=== PATIENT | female | born 1955 | race African-American/Black ===

== ENCOUNTER 2016-11-17 15:01 | Inpatient (IN) | payer OTHER ==
[~2016-11-17] VITALS: Ht 160 cm; Wt 43.5 kg
[~2016-11-17 15:01] MED LIST: FOLI-49 PO; RANI150T5 PO; SMV40T PO; SULF500T45 PO
[2016-11-17] MEDS ORDERED: HYDROmorphONE 1 MG/ML SYG IV STA ×3 (15:13→21:23)
[2016-11-17] MEDS ORDERED: SOD CHLORIDE 0.9% 1,000 ML IV STA ×2 (15:13→15:18)
[2016-11-17] MEDS ORDERED: ONDANSETRON 4 MG INJ IV STA (15:13)
--- NOTE | 2016-11-17 15:50 | RADRPT ---
PROCEDURE: CHEST 1VW CLINICAL INDICATION: Abdominal pain TECHNIQUE: Single frontal view of the chest was obtained COMPARISON: None. FINDINGS: The cardiac size is normal. Aortic vascular calcifications are demonstrated. There is no pulmonary vascular congestion. The lungs are clear. No consolidation, effusion, or pneumothorax. Mild degenerative changes of the visualized osseous structures are visualized. IMPRESSION: 1. No acute cardiopulmonary process. 2. Atherosclerosis. RPTAT:PP .Tito Zeng MD, MD Date Time Electronically viewed and signed by .Tito Zeng MD, on 11/17/2016 15:49 .V/
[2016-11-17 15:58] LABS: ADD SCAN DIFF NO
[2016-11-17 16:01] LABS: BASOPHILS % 0.3 % (0.0-2.0); EOSINOPHILS % 0.3 % (0.0-7.0); HEMATOCRIT 39.9 % (37.0-47.0); HEMOGLOBIN 12.5 g/dl (12.0-16.0); LYMPHOCYTES # 1.7 10^3/ul (0.8-2.9); LYMPHOCYTES % 11.6 % (15.0-51.0); MEAN CORPUSCULAR HEMOGLOBIN 29.8 pg (29.0-33.0); MEAN CORPUSCULAR HGB CONC 31.3 g/dl (32.0-37.0); MEAN CORPUSCULAR VOLUME 95.2 fl (82.0-101.0); MONOCYTE # 0.4 10^3/ul (0.3-0.9); MONOCYTES % 2.9 % (0.0-11.0); NEUTROPHIL # 12.6 10^3/ul (1.6-7.5); NEUTROPHILS % 84.2 % (39.0-77.0); PLATELET COUNT 548 10^3/UL (140-415); RED BLOOD COUNT 4.19 10^6/ul (4.20-5.40); RED CELL DISTRIBUTION WIDTH 12.6 % (11.5-14.5); WHITE BLOOD COUNT 14.9 10^3/ul (4.8-10.8)
[2016-11-17 16:24] LABS: INR 0.88; PARTIAL THROMBOPLASTIN TIME 21.7 Sec (25.0-35.0); PROTIME 11.9 Sec (12.2-14.2); PT RATIO 0.9
[2016-11-17 16:27] LABS: ALANINE AMINOTRANSFERASE 30 IU/L (13-69); ALBUMIN 4.3 g/dl (3.3-4.9); ALBUMIN/GLOBULIN RATIO 1.02; ALKALINE PHOSPHATASE 126 IU/L (42-121); ANION GAP 17 (8-16); ASPARTATE AMINO TRANSFERASE 27 IU/L (15-46); BILIRUBIN,INDIRECT 0.3 mg/dl (0-1.1); BILIRUBIN,TOTAL 0.3 mg/dl (0.2-1.3); BLOOD UREA NITROGEN 19 mg/dl (7-20); CALCIUM 10.3 mg/dl (8.4-10.2); CARBON DIOXIDE 24 mmol/L (21-31); CHLORIDE 99 mmol/L (97-110); CREATININE 1.19 mg/dl (0.44-1.00); GLUCOSE 244 mg/dl (70-220); POTASSIUM 3.3 mmol/L (3.5-5.1); SODIUM 137 mmol/L (135-144); TOTAL PROTEIN 8.5 g/dl (6.1-8.1)
[2016-11-17 16:53] LABS: TROPONIN-I < 0.012 ng/ml (0.00-0.12)
--- NOTE | 2016-11-17 17:14 | RADRPT ---
PROCEDURE: CT Abdomen and Pelvis without contrast. CLINICAL INDICATION: History of small bowel obstruction. TECHNIQUE: CT scan of the abdomen and pelvis without contrast was performed. Coronal and sagittal reformatted images were obtained from the axial source images. Images were reviewed on a high-res[employer] PACS workstation. Total exam DLP is 373.39 mGy-cm. CTDIvol is 7.86 mGy. One or more of the fo [facility] dose reduction techniques were used: Automated exposure control, adjustment of the mA and/or kV according to patient size, use of iterative reconstruction technique. COMPARISON: 06/27/2016. FINDINGS: The lung bases are normal. There is no pleural effusion. The liver is normal in size and attenuation. There is no focal hepatic lesion. The gallbladder and bile ducts are normal. The spleen is normal in size. There is no focal splenic lesion. The right adrenal is normal. There is a low attenuation 1.5 x 1.4 cm nodule in the left adrenal wit h a CT number of 1.0. The pancreas is unremarkable with no mass or evidence of pancreatitis. There is no renal mass or hydronephrosis. There is a nonobstructing 0.1 cm calculus in the mid righ t kidney. There is no left renal calculus or ureteral calculus. The abdominal aorta is not dilated. There is calcification in the aorta consistent with atheroscler osis. There is no retroperitoneal lymphadenopathy or mass. There is no pelvic lymphadenopathy. Small calcified fibroids are present in the uterus. The bladder and distal ureters are normal. The periappendiceal region is unremarkable with no evidence of appendicitis. The stomach, small bowel, and ascending colon are all distended with fluid consistent with obstructi on. There is a stent within the colon at the site of the previously noted mass in the hepatic flexu re/right side of the transverse colon. The obstruction once again appears to be centered at this lo cation. As seen previously, there is extensive nodularity within the mesentery in the left upper josselyn drant consistent with neoplasm. There is no free fluid or free gas. The osseous structures are unremarkable with no fracture or lytic lesion. IMPRESSION: 1. Low attenuation 1.5 cm nodule in the left adrenal, probably benign. 2. Nonobstructing 0.1 cm calculus in the mid right kidney. 3. Atherosclerosis. 4. Small calcified fibroids in the uterus. 5. Obstruction due to a mass in the hepatic flexure region of the colon. A stent is present at thi s site but it is probably obstructed. 6. Extensive nodularity in the mesentery in the left upper quadrant consistent with neoplasm. RPTAT: QQ .Felipe Hendricks MD, Date Time Electronically viewed and signed by .Felipe Hendricks MD, on 11/17/2016 17:13 .R/
[2016-11-17] MEDS ORDERED: ONDANSETRON 4 MG INJ IV PRN (18:00)
[2016-11-17] MEDS ORDERED: ACETAMINOPHEN 325 MG TAB PO PRN (18:00)
--- NOTE | 2016-11-17 18:50 | ERA ---
ER Documentation Chief Complaint Date/Time DATE: 11/17/16 TIME: 18:48 Chief Complaint SEVERE AP WITH NAUSEA, HAD BOWEOL OBSTRUCTION LAST Jun Patient is a 61-year-old female with bowel obstruction and ulcerative colitis who presents with abdominal pain. She has had abdominal pain since June. She was vomiting blood which started this morning at 10 AM. She has diarrhea. She had subjective fever but did not take her temperature. She tried to Tylenol. Upon review of old medical records the patient one previous visit in June 2016 with a large bowel obstruction. She was seen by Dr. Peter Padron from general surgery and Dr. Perez from GI at that time. ROS All systems reviewed and are negative except as per history of present illness. Medications Home Meds Reported Medications Folic Acid* (Folic Acid*) 1 Mg Tablet, 1 MG PO DAILY, TAB 10/04/14 Ranitidine Hcl* (Ranitidine Hcl*) 150 Mg Tablet, 150 MG PO PRN, TAB 10/04/14 Simvastatin (Simvastatin) 40 Mg Tablet, 40 MG PO QHS 11/09/12 Sulfasalazine (Azulfidine) 500 Mg Tab, 1000 MG PO BID 11/09/12 Allergies Allergies: Coded Allergies: No Known Allergy (Unverified , 11/17/16) PMhx/Soc History of Surgery: Yes (COLONOSCOPY NOVEMBER 2015) Anesthesia Reaction: No Hx Neurological Disorder: No Hx Respiratory Disorders: No Hx Cardiac Disorders: Yes (HIGH CHOLESTEROL) Hx Psychiatric Problems: Yes (DEPRESSION) Hx Miscellaneous Medical Probl: No Hx Alcohol Use: Yes (OCCASIONALLY) Hx Substance Use: No Hx Tobacco Use: Yes (YESTERDAY, 1 PACK EVERY 4 DAYS) Smoking Status: Current every day smoker FmHx Family History: diabetes Physical Exam Vitals Vital Signs Date Time Temp Pulse Resp B/P Pulse Ox O2 Delivery O2 Flow Rate FiO2 11/17/16 17:46 88 18 106/74 99 11/17/16 17:26 88 18 106/60 99 11/17/16 15:30 81 18 92/62 99 11/17/16 15:02 98.1 130 18 125/67 99 Physical Exam Const: Moderate distress secondary to pain Head: Atraumatic Eyes: Normal Conjunctiva ENT: Dry mucous membranes Neck: Full range of motion..~ No meningismus. Resp: Clear to auscultation bilaterally Cardio: Tachycardic rate without murmur Abd: Diffuse tenderness to palpation without rebound or guarding Skin: No petechiae or rashes Back: No midline or flank tenderness Ext: No cyanosis, or edema Neur: Awake and alert Psych: Normal Mood and Affect Result Diagram: 11/17/16 1545 11/17/16 1545 Results 24 hrs Laboratory Tests Test 11/17/16 15:45 White Blood Count 14.910^3/ul Red Blood Count 4.1910^6/ul Hemoglobin 12.5g/dl Hematocrit 39.9% Mean Corpuscular Volume 95.2fl Mean Corpuscular Hemoglobin 29.8pg Mean Corpuscular Hemoglobin Concent 31.3g/dl Red Cell Distribution Width 12.6% Platelet Count 35565^3/UL Mean Platelet Volume 9.0fl Neutrophils % 84.2% Lymphocytes % 11.6% Monocytes % 2.9% Eosinophils % 0.3% Basophils % 0.3% Nucleated Red Blood Cells % 0.0/100WBC Neutrophils # 12.610^3/ul Lymphocytes # 1.710^3/ul Monocytes # 0.410^3/ul Eosinophils # 0.010^3/ul Basophils # 0.010^3/ul Nucleated Red Blood Cells # 0.010^3/ul Prothrombin Time 11.9Sec Prothrombin Time Ratio 0.9 INR International Normalized Ratio 0.88 Activated Partial Thromboplast Time 21.7Sec Sodium Level 137mmol/L Potassium Level 3.3mmol/L Chloride Level 99mmol/L Carbon Dioxide Level 24mmol/L Anion Gap 17 Blood Urea Nitrogen 19mg/dl Creatinine 1.19mg/dl Glucose Level 244mg/dl Calcium Level 10.3mg/dl Total Bilirubin 0.3mg/dl Direct Bilirubin 0.00mg/dl Indirect Bilirubin 0.3mg/dl Aspartate Amino Transf (AST/SGOT) 27IU/L Alanine Aminotransferase (ALT/SGPT) 30IU/L Alkaline Phosphatase 126IU/L Troponin I < 0.012ng/ml Total Protein 8.5g/dl Albumin 4.3g/dl Globulin 4.20g/dl Albumin/Globulin Ratio 1.02 Lipase 66U/L Current Medications Medications (Trade) Dose Ordered Sig/Nena Route PRN Reason Start Time Stop Time Status Last Admin Dose Admin Sodium Chloride (NS) 1,000 ml @ 1,000 mls/hr Q1H STAT IV 11/17/16 15:13 11/17/16 16:12 DC 11/17/16 15:48 Hydromorphone HCl (Dilaudid) 1 mg ONCE STAT IV 11/17/16 15:13 11/17/16 15:14 DC 11/17/16 15:49 Ondansetron HCl 4 mg 4 mg ONCE STAT IV 11/17/16 15:13 11/17/16 15:14 DC 11/17/16 15:49 Sodium Chloride (NS) 1,000 ml @ 1,000 mls/hr Q1H STAT IV 11/17/16 15:18 11/17/16 16:17 DC 11/17/16 15:48 Ondansetron HCl (Zofran Inj) 4 mg BRIDGE ORDER PRN IV NAUSEA AND/OR VOMITING 11/17/16 18:00 11/18/16 17:59 Acetaminophen (Tylenol Tab) 650 mg ER BRIDGE PRN PO MILD PAIN/FEVER 11/17/16 18:00 11/18/16 17:59 Procedures/MDM CT scan shows bowel obstruction per radiology. Smoking Cessation Therapy: Pt. was lectured for greater than 3 minutes on the health risks of continued smoking and the benefits of cessation. Patient is a 61-year-old female with previous bowel obstruction who presents with an acute bowel obstruction. She has abdominal pain diffusely. She will need admission to a medical surgical bed. I spoke with Dr. Dsouza from the panel team for admission. The patient was given 2 L of fluid for tachycardia as well. She also appeared dehydrated. The patient was complaining of vomiting blood earlier this morning but has had no vomiting blood in the emergency department. Departure Diagnosis: Primary Impression: Abdominal pain Qualified Code: R10.84 - Generalized abdominal pain Additional Impressions: Hematemesis Qualified Code: K92.0 - Hematemesis with nausea Bowel obstruction Qualified Code: K56.60 - Intestinal obstruction, unspecified type Condition: VY Gao MD November 17, 2016 18:50
[2016-11-17 19:07] VITALS: TEMP 97.6
--- NOTE | 2016-11-17 21:04 | CONS ---
Date/Time of Note Date/Time of Note DATE: 11/17/16 TIME: 20:48 Assessment/Plan Assessment/Plan Chief Complaint/Hosp Course 1. Abdominal pain, weight loss, nausea, vomiting, colonic recurrent obstruction at stent site and CT findings are suggestive of ulcerative colitis strictures versus neoplasm versus other. -N.p.o. -NG tube -IV fluid -Colorectal surgical consultation obtained from Dr. Spann that saw patient yesterday 2. Weight loss secondary to above. 3. Ulcerative colitis. -Continue medical management per GI. 4. Leukocytosis, probably secondary to above. Treatment as above. 5. History of left upper quadrant abdominal mass status post biopsies, nonmalignant during previous hospitalization 6. Smoker. The patient is highly encouraged to stop smoking. 7. Hypercholesterolemia. Encourage diet optimization. Thank you very much for consulting me in this patient's care. Problems: Consultation Date/Type/Reason Admit Date/Time Date of Consultation: November 17, 2016 Type of Consultation: Gen Surgical Reason for Consultation 1. Abdominal pain with nausea and vomiting 2. Transverse colon stricture/lesion s/p stent and now ? obstruction Referring Provider: VY OLEARY MD Hx of Present Illness Kaleigh Quiñones is a 61-year-old female with multiple comorbidities who has had multiple colonoscopies, initially with Dr. Amanda in November 2012, followed by Dr. Perez in September 2014, and subsequently in November 2015 & June when the restriction of transverse and hepatic flexure colon were identified and a stent was placed by Dr. Chaudhry. At the time she had obstruction of the site which was relieved by the stent and she was subsequently discharged home. She had multiple biopsies of the strictured area and the tumors however all were negative for malignancy. Since her discharge she has been having on and off nausea vomiting bloating and abdominal pain. She had seen Dr. Markham, Dr. Chase, and finally Dr. Spann yesterday. Per her discussions with Dr. Spann and subsequently Dr. Chaudhry plan has been to proceed with diagnostic laparoscopy to identify if she has malignancy or carcinomatosis or other findings and to proceed with possible surgical treatments. However for the past week or so she has been having abdominal pain, nausea, vomiting, and constipation. She had 2 nuggets of bowel movements that came out yesterday. She denies any fevers or chills. No chest pain, no shortness of breath. No visual or neurologic changes. No trauma or sick contacts. No blood per mouth or rectum. Since the pain, nausea, and vomiting persisted, she presented to the emergency room for further evaluation and treatment. She denies night sweats but reports weakness. She denies any dysuria or vaginal discharge. In the emergency room, she is found to be afebrile with stable vitals and she had leukocytosis at 14.9, hemoglobin of 12.9 with elevated platelets at 548. Chemistry has some abnormalities with elevated creatinine. Previous CA 19-9 was elevated at 57.8. However, CEA was 3.4 within normal. CA-125 is less than 5.5. Alpha-fetoprotein is 2. CT scan of the abdomen and pelvis identifies large bowel obstruction secondary to obstructed stent with possible tumor growth. Surgical consult was obtained for further evaluation and treatment. 12 point review of system is negative unless addressed in HPI. Past Medical History 1. Weight loss. 2. Anemia. 3. Leukocytosis. 4. Elevated CA 19-9. 5. Ulcerative colitis, probable 6. HPV for 1 year. 7. Hypercholesterolemia. 8. Urinary tract infection history. 9. Depression. 10. Left knee arthritis. 11. Smoker. 12. Abdominal pain. 13. Colonic stricture/mass with obstruction 14. Abdominal mass Past Surgical History Colonoscopies with colonic stent Family History Significant Family History: hypertension (Sister) Social History Everyday smoker, maybe 1/4 pack per day for 45 years. Denies recreational drugs ; however, has rare alcohol use. Exam/Review of Systems Vital Signs Vitals Vital Signs Date Time Temp Pulse Resp B/P Pulse Ox O2 Delivery O2 Flow Rate FiO2 11/17/16 19:07 97.6 92 15 131/74 96 Room Air Exam GENERAL: No acute distress, comfortable, pleasant, and cachectic. HEENT: Pupils equal, reactive. No scleral icterus. Mucous membranes are somewhat dry. NECK: No crepitus, no JVD. Trachea is midline. CHEST: Normal respiratory effort. No wheezing. HEART: S1, S2 present. ABDOMEN: Soft, min tender. Distended. No rebound, no guarding, not rigid. EXTREMITIES: No edema. VASCULAR: Capillary refill is less than 2 seconds. NEUROLOGIC: Alert, oriented, moves all 4 extremities grossly. LYMPHATICS: No palpable lymph nodes in periauricular, cervical, or supraclavicular. Small lymph nodes in the groins. SKIN: No rashes. No jaundice. Results Result Diagram: 11/17/16 1545 11/17/16 1545 Results 24 hrs Laboratory Tests Test 11/17/16 15:45 White Blood Count 14.9 #H Red Blood Count 4.19 #L Hemoglobin 12.5 # Hematocrit 39.9 # Mean Corpuscular Volume 95.2 Mean Corpuscular Hemoglobin 29.8 Mean Corpuscular Hemoglobin Concent 31.3 L Red Cell Distribution Width 12.6 Platelet Count 548 H Mean Platelet Volume 9.0 # Neutrophils % 84.2 H Lymphocytes % 11.6 L Monocytes % 2.9 Eosinophils % 0.3 Basophils % 0.3 Nucleated Red Blood Cells % 0.0 Neutrophils # 12.6 H Lymphocytes # 1.7 Monocytes # 0.4 Eosinophils # 0.0 Basophils # 0.0 Nucleated Red Blood Cells # 0.0 Prothrombin Time 11.9 L Prothrombin Time Ratio 0.9 INR International Normalized Ratio 0.88 Activated Partial Thromboplast Time 21.7 L Sodium Level 137 Potassium Level 3.3 L Chloride Level 99 Carbon Dioxide Level 24 Anion Gap 17 H Blood Urea Nitrogen 19 Creatinine 1.19 H Glucose Level 244 H Calcium Level 10.3 H Total Bilirubin 0.3 Direct Bilirubin 0.00 Indirect Bilirubin 0.3 Aspartate Amino Transf (AST/SGOT) 27 Alanine Aminotransferase (ALT/SGPT) 30 Alkaline Phosphatase 126 H Troponin I < 0.012 Total Protein 8.5 H Albumin 4.3 Globulin 4.20 H Albumin/Globulin Ratio 1.02 Lipase 66 SHAYAN PABLO MD November 17, 2016 20:58
[2016-11-17] MEDS: LIDOCAINE 2% JELLY 30 ML TOP STA ×2 (21:30→21:46)
[2016-11-17] MEDS ORDERED: LIDOCAINE 2% VISC 15 ML CUP PO ONE (22:00)
[2016-11-17 22:50] VITALS: BP 109/61; RESP 16
[2016-11-17 23:00] VITALS: Ht 160 cm; Wt 43.5 kg
[2016-11-18] MEDS ORDERED: LORAZEPAM 2 MG INJ IV PRN
[2016-11-18] MEDS ORDERED: ONDANSETRON 4 MG INJ IV PRN
[2016-11-18] MEDS: DEXTROSE 5%-0.45% NACL 1,000 ML IV SCH ×3 (01:03→20:10)
[2016-11-18] MEDS: morphine 4 MG/ML VIAL IV PRN ×4 (01:34→20:31)
[2016-11-18 05:32] LABS: ADD SCAN DIFF NO
[2016-11-18 05:41] LABS: HEMATOCRIT 29.2 % (37.0-47.0); HEMOGLOBIN 9.1 g/dl (12.0-16.0); MEAN CORPUSCULAR HEMOGLOBIN 29.4 pg (29.0-33.0); MEAN CORPUSCULAR HGB CONC 31.2 g/dl (32.0-37.0); MEAN CORPUSCULAR VOLUME 94.2 fl (82.0-101.0); MEAN PLATELET VOLUME 8.8 fl (7.4-10.4); PLATELET COUNT 434 10^3/UL (140-415); RED CELL DISTRIBUTION WIDTH 12.8 % (11.5-14.5); WHITE BLOOD COUNT 7.3 10^3/ul (4.8-10.8)
[2016-11-18 06:12] LABS: ADD UMIC YES; URINE BLOOD (Dip) NEGATIVE (NEGATIVE); URINE COLOR LT. YELLOW (YELLOW); URINE GLUCOSE (Dip) NEGATIVE (NEGATIVE); URINE KETONES (Dip) 15 (NEGATIVE); URINE LEUKOCYTE ESTERASE (Dip) NEGATIVE (NEGATIVE); URINE NITRITE (Dip) NEGATIVE (NEGATIVE); URINE TOTAL PROTEIN (Dip) TRACE (NEGATIVE); URINE UROBILINOGEN (Dip) 0.2 E.U./dL (0.1-1.0)
[2016-11-18 06:33] LABS: URINE BILIRUBIN (Dip) NEGATIVE (NEGATIVE)
[2016-11-18 06:46] LABS: ALBUMIN 2.9 g/dl (3.3-4.9); ALBUMIN/GLOBULIN RATIO 0.93; BILIRUBIN,INDIRECT 0.4 mg/dl (0-1.1); BILIRUBIN,TOTAL 0.4 mg/dl (0.2-1.3); CALCIUM 8.1 mg/dl (8.4-10.2); CREATININE 0.95 mg/dl (0.44-1.00); MAGNESIUM 1.5 mg/dl (1.7-2.5); PHOSPHORUS 3.4 mg/dl (2.5-4.9); POTASSIUM 3.9 mmol/L (3.5-5.1)
[2016-11-18 06:48] LABS: SQUAMOUS EPITHELIAL CELL,UR FEW; URINE RBCS 0-2 /HPF (0)
[2016-11-18 06:49] LABS: BACTERIA,URINE OCCASIONAL
[2016-11-18 07:50] VITALS: BP 129/69; RESP 19
--- NOTE | 2016-11-18 09:27 | CONS ---
Date/Time of Note Date/Time of Note DATE: 11/18/16 TIME: 09:15 Assessment/Plan Assessment/Plan Chief Complaint/Hosp Course 61YO Woman h/o UC with colonic obstruction s/p stent in 06/25 now with obstipation and vomiting. Pt had NGT placed, clear yellow fluid drained. At bedside, pt is pleasant, conversative, complaining of mild abdominal pain improved since NGT placed. VS OK. Abdomen soft, mildly distended. WBC OK, creatinine improved with hydration. Voiding. I had conversation with pt about situation. It appears her stent is failing. She has a large bowel obstruction that is either due to chronic UC, CRC or other extrinsic cancer. I told her she should have an operation. I would start with a diagnostic laparoscopy, and if there were signs of carcinomatosis, I would probably sent off frozen sections for analysis, and would probably divert proximally with an end ileostomy and mucous fistula. We would then treat her cancer appropriately. If there was no signs of carcinomatosis, I would probably do a total abdominal colectomy with end ileostomy. I told pt doing a ileorectal anastomosis (as had been suggested by outside physician) would lead to poor function as her anal tone is already decreased and she could get inflammation in her rectum due to her disease. Pt is currently declining surgery. I will speak to pt's cousin about it. I told pt if she gets febrile, gets peritonitis or starts to decompensate otherwise, will need to go to OR urgently. I told her this is a possibility in this situation, pt understands. I will try to get ostomy nurse to see pt if available. I will call OR about getting her on for tomorrow when she may consent. In the meantime, NPO, IVF, flush NGT. Medical team - please optimize for surgery. Will see in AM unless gets sick. Problems: Consultation Date/Type/Reason Admit Date/Time Hx of Present Illness 61YO Woman h/o UC, had colonoscopy in 11/23 revealing some narrowing and inflammation on bx. In 06/25 was obstructed at transverse colon - no surgery performed. Had colonic stent placed with relief of obstruction. CT at time revealed some signs of carcinomatosis, bx revealed pancreatic tissue with fibrous changes. Pt had seen general surgeons after D/C but did not have an operation or w/u for possible CA. I saw patient a few days ago in office, reported gassiness but no obstruction. Pt now reports pain and emesis. Pt had NGT placed in ER, pain improved, clear yellow fluid currently drainage. No F/C/ SOB/CP. At bedside, pt appears well, conversative, AOx3 Constitutional: no complaints Cardiovascular: no complaints Gastrointestinal: pain (obstipation) Past Medical History Ulcerative Colitis Past Surgical History Past Surgical Hx: no surgical history Social History Smoking Status: Former smoker Exam/Review of Systems Vital Signs Vitals Vital Signs Date Time Temp Pulse Resp B/P Pulse Ox O2 Delivery O2 Flow Rate FiO2 11/18/16 07:50 98.4 86 19 129/69 97 11/17/16 22:28 Room Air Intake and Output 11/17/16 11/17/16 11/18/16 15:00 23:00 07:00 Intake Total 1000 ml Output Total 500 ml Balance 1000 ml -500 ml Exam Constitutional: alert Respiratory: clear to auscultation Cardiovascular: regular rate and rhythm Gastrointestinal: distended (mildly distended, no peritoneal signs), soft Results Result Diagram: 11/18/16 0517 11/18/16 0517 Results 24 hrs Laboratory Tests Test 11/17/16 15:45 11/18/16 05:17 White Blood Count 14.9 #H 7.3 # Red Blood Count 4.19 #L 3.10 #L Hemoglobin 12.5 # 9.1 #L Hematocrit 39.9 # 29.2 #L Mean Corpuscular Volume 95.2 94.2 Mean Corpuscular Hemoglobin 29.8 29.4 Mean Corpuscular Hemoglobin Concent 31.3 L 31.2 L Red Cell Distribution Width 12.6 12.8 Platelet Count 548 H 434 #H Mean Platelet Volume 9.0 # 8.8 Neutrophils % 84.2 H Lymphocytes % 11.6 L Monocytes % 2.9 Eosinophils % 0.3 Basophils % 0.3 Nucleated Red Blood Cells % 0.0 Neutrophils # 12.6 H Lymphocytes # 1.7 Monocytes # 0.4 Eosinophils # 0.0 Basophils # 0.0 Nucleated Red Blood Cells # 0.0 Prothrombin Time 11.9 L Prothrombin Time Ratio 0.9 INR International Normalized Ratio 0.88 Activated Partial Thromboplast Time 21.7 L Sodium Level 137 138 Potassium Level 3.3 L 3.9 Chloride Level 99 106 Carbon Dioxide Level 24 29 Anion Gap 17 H 7 #L Blood Urea Nitrogen 19 23 H Creatinine 1.19 H 0.95 Glucose Level 244 H 106 # Calcium Level 10.3 H 8.1 L Total Bilirubin 0.3 0.4 Direct Bilirubin 0.00 0.00 Indirect Bilirubin 0.3 0.4 Aspartate Amino Transf (AST/SGOT) 27 23 Alanine Aminotransferase (ALT/SGPT) 30 24 Alkaline Phosphatase 126 H 70 Troponin I < 0.012 Total Protein 8.5 H 6.0 #L Albumin 4.3 2.9 #L Globulin 4.20 H 3.10 Albumin/Globulin Ratio 1.02 0.93 Lipase 66 Phosphorus Level 3.4 Magnesium Level 1.5 L Medications Medications Current Medications Ondansetron HCl (Zofran Inj) 4 mg Q6H PRN IV NAUSEA AND/OR VOMITING; Start 05/27 at 00:00 Morphine Sulfate (morphine) 3 mg Q4H PRN IV FOR PAIN Last administered on 05:18; Admin Dose 3 MG; Start 11/18/16 at 00:00 Lorazepam 1 mg 1 mg Q6H PRN IV ANXIETY; Start 11/18/16 at 00:00 Dextrose/Sodium Chloride (D5-1/2ns) 1,000 ml @ 100 mls/hr Q10H IV Last administered on 11/18/16 01:03; Admin Dose 100 MLS/HR; Start 11/18/16 at 00:00 PRINCESS DIAZ M.D. November 18, 2016 09:27
[2016-11-18 13:02] LABS: EOSINOPHILS # 0.1 10^3/ul (0.0-0.5); MONOCYTE # 0.5 10^3/ul (0.3-0.9); NEUTROPHIL # 4.6 10^3/ul (1.6-7.5)
--- NOTE | 2016-11-18 13:21 | PN ---
Date/Time of Note Date/Time of Note DATE: 11/18/16 TIME: 13:16 Assessment/Plan VTE Prophylaxis VTE Prophylaxis Intervention: SCD's Lines/Catheters IV Catheter Type (from Nrsg): Peripheral IV Assessment/Plan Chief Complaint/Hosp Course Chief Complaint/Hosp Course 1. Abdominal pain - 2/2 to large bowel obstruction presumably CA - metastatic type -surgical consult with Dr. Padron and colorectal surgeon Dr. Spann been consulted, plan for diagnostic laparoscopy, to evaluate for any signs of carcinomatosis, -status post history of stent placement at the stricture site, - Oncology consultation with Dr. Stephens will be obtained - Continue IVF, pain medication 2. History of UC/Crohn's Continue medical management 3. Anemia of chronic disease Monitor 4. Smoking abuse patient counseled on cessation 5. GI ppx - protonix 6. DVT ppx - scds Problems: Subjective 24 Hr Interval Summary Free Text/Dictation Patient continues to complain of having abdominal discomfort No nausea vomiting NG tube in place Exam/Review of Systems Vital Signs Vitals Vital Signs Date Time Temp Pulse Resp B/P Pulse Ox O2 Delivery O2 Flow Rate FiO2 11/18/16 07:50 98.4 86 19 129/69 97 11/17/16 22:28 Room Air Intake and Output 11/17/16 11/17/16 11/18/16 15:00 23:00 07:00 Intake Total 1000 ml Output Total 500 ml Balance 1000 ml -500 ml Exam General: The patient is well-developed, Not in acute distress. HEENT: Atraumatic, normocephalic. The pupils are equal and round . NG tube in place Neck: Supple Chest: Normal expansion of the thorax during inspiration Lungs: Clear to auscultation bilaterally Heart: Normal S1-S2, Regular rhythm and rate. Abdomen: Soft , nontender, nondistended , bowel sounds are present although hypoactive. Extremities: Normal to inspection, no edema no cyanosis Neurologic: Normal mental status,The patient is awake, alert and oriented . Results Result Diagram: 11/18/16 0517 11/18/16 0517 Results 24 hrs Laboratory Tests Test 11/17/16 15:45 11/18/16 05:17 White Blood Count 14.9 #H 7.3 # Red Blood Count 4.19 #L 3.10 #L Hemoglobin 12.5 # 9.1 #L Hematocrit 39.9 # 29.2 #L Mean Corpuscular Volume 95.2 94.2 Mean Corpuscular Hemoglobin 29.8 29.4 Mean Corpuscular Hemoglobin Concent 31.3 L 31.2 L Red Cell Distribution Width 12.6 12.8 Platelet Count 548 H 434 #H Mean Platelet Volume 9.0 # 8.8 Neutrophils % 84.2 H 63.0 Lymphocytes % 11.6 L 27.0 Monocytes % 2.9 7.0 Eosinophils % 0.3 1.0 Basophils % 0.3 Nucleated Red Blood Cells % 0.0 Neutrophils # 12.6 H 4.6 Lymphocytes # 1.7 2.0 Monocytes # 0.4 0.5 Eosinophils # 0.0 0.1 Basophils # 0.0 Nucleated Red Blood Cells # 0.0 Prothrombin Time 11.9 L Prothrombin Time Ratio 0.9 INR International Normalized Ratio 0.88 Activated Partial Thromboplast Time 21.7 L Sodium Level 137 138 Potassium Level 3.3 L 3.9 Chloride Level 99 106 Carbon Dioxide Level 24 29 Anion Gap 17 H 7 #L Blood Urea Nitrogen 19 23 H Creatinine 1.19 H 0.95 Glucose Level 244 H 106 # Calcium Level 10.3 H 8.1 L Total Bilirubin 0.3 0.4 Direct Bilirubin 0.00 0.00 Indirect Bilirubin 0.3 0.4 Aspartate Amino Transf (AST/SGOT) 27 23 Alanine Aminotransferase (ALT/SGPT) 30 24 Alkaline Phosphatase 126 H 70 Troponin I < 0.012 Total Protein 8.5 H 6.0 #L Albumin 4.3 2.9 #L Globulin 4.20 H 3.10 Albumin/Globulin Ratio 1.02 0.93 Lipase 66 Band Neutrophils % 2.0 Phosphorus Level 3.4 Magnesium Level 1.5 L Medications Medications Current Medications Ondansetron HCl (Zofran Inj) 4 mg Q6H PRN IV NAUSEA AND/OR VOMITING; Start 05/27 at 00:00 Morphine Sulfate (morphine) 3 mg Q4H PRN IV FOR PAIN Last administered on t 10:33; Admin Dose 3 MG; Start 11/18/16 at 00:00 Lorazepam 1 mg 1 mg Q6H PRN IV ANXIETY; Start 11/18/16 at 00:00 Dextrose/Sodium Chloride (D5-1/2ns) 1,000 ml @ 100 mls/hr Q10H IV Last administered on 11/18/16t 10:32; Admin Dose 100 MLS/HR; Start 11/18/16 at 00:00 HERRERA ZAMORA MD November 18, 2016 13:21
--- NOTE | 2016-11-18 15:07 | RADRPT ---
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 Physician: HERRERA ZAMORA Quality: Adequate Procedures: Transthoracic echocardiogram with complete 2D, M-Mode, and doppler examination. Indications: Pre-op. 2D/M Mode Doppler Measurement Value Normal Ranges Measurement Value Normal Ranges LVIDd 2D 4.3 3.5 - 5.6 cm GAYATHRI Vmax 1.8 cm2 LVIDs 2D 2.3 2.1 - 4.1 cm AV Peak Feng 1.3 m/sec FS 2D 45.5 % AV Peak PG 7.0 mmHg LVPWd 2D 0.8 0.6 - 1.1 cm LVOT Peak Feng 1.0 m/sec IVSd 2D 0.9 0.6 - 1.1 cm LVOT Peak PG 4.0 mmHg IVS/LVPW 2D 1.0 MV E Peak Feng 0.6 m/sec AoR Diam 2D 2.1 2.0 - 3.7 cm MV A Peak Feng 0.7 m/sec LA/Ao 2D 1 0 - 1 MV E/A 0.9 EDV 2D 79.0 cm3 MV Decel Time 201 msec ESV 2D 12.8 cm3 MV E/A 0.9 LA Dimen 2D 2.4 2.3 - 4.0 cm TR Peak Feng 2.4 m/sec LVOT Diam 1.7 cm TR Peak PG 23.0 mmHg LVOT Area 2.3 cm2 RVSP 26.0 mmHg Findings Left Ventricle: Normal left ventricular systolic function. Normal left ventricular cavity size. Normal left ventricular wall thickness. Ejection fraction is visually estimated at 5560 %. Right Ventricle: Normal right ventricular size. Normal right ventricular systolic function. Left Atrium: The left atrium is normal in size. Right Atrium: The right atrium is normal in size. Mitral Valve: Mitral valve leaflets appear mildly thickened. Mild mitral annular calcification. Mild mitral valve regurgitation. Aortic Valve: Normal appearance of the aortic valve. No significant aortic stenosis or insufficiency. Tricuspid Valve: Normal appearance and function of the tricuspid valve with trace physiologic regurgitation. Normal right ventricular systolic pressure. Estimated peak PA systolic pressure 26 mmHg. Pulmonic Valve: Pulmonic valve not well visualized. Pericardium: Normal pericardium with no significant pericardial effusion. Aorta: Normal aortic root. IVC: Normal size and normal respiratory collapse consistent with normal right atrial pressure. Conclusions 1.The left ventricle is normal in size and systolic function. 2.Estimated left ventricular ejection fraction of 55-60%. Electronically Signed By: Chepe Xiao 18-Nov-2016 15:06:37 -0700 Patient Name: MAURA SALES Study Date: 18-Nov-2016 [id number]
[2016-11-18 19:34] VITALS: BP 173/80; RESP 20
[2016-11-18] MEDS ORDERED: CEFAZOLIN 1 GM/50 ML (PMX) 50 ML IVPB SCH (20:00)
--- NOTE | 2016-11-18 21:28 | HP ---
Date/Time of Note Date/Time of Note DATE: 11/17/16 TIME: 21:28 Assessment/Plan Lines/Catheters IV Catheter Type (from Nrs): Saline Lock Assessment/Plan Assessment/Plan 1. Abdominal pain - most likely 2/2 to bowel obstruction - last bowel movement yesterday. Her Belly is soft and not distended. - seen by surgical teams. Will f/u recommendations 2. Intraabdominal Mass: likely neoplasm - pt had a neg bx during previous hospitalization, but it appears that CT scan finding is likely 2/2 malignancy - f/u surgery recs 3. 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 4. Anemia of chronic disease - monitor h/h. transfuse as needed. HPI/ROS Admit Date/Time Admit Date/Time Hx of Present Illness This is a 61 yo female with hx of UC, bowel obstruction s/p colonic stent, abdominal mass presented to ER c/o abd pain/distention and vomiting. Patient was recently admitted here after she presented with abdominal pain secondary to a large bowel obstruction. She had a CT on arrival that showed a large bowel obstruction secondary to focal thickening along the proximal transverse colon, thought to be secondary to neoplasm. There was also a metastatic mass noted in the left abdomen. The patient was seen by Dr. Perez of GI, who is the patient's supervisor screen making, as well as Dr. Peter Padron of surgery and Dr. Stephens of oncology. The plan was for the patient to receive first a barium enema to evaluate the segment proximal to the stricture. The patient then had a colonoscopy with a stent placement at the site of the stricture. No mass was noted during the colonoscopy. In regards to the stricture, it was felt by surgery that the patient will eventually need a colectomy. In regards to the left abdominal mass, a CT-guided biopsy was done. There was a low suspicion for cancer, per oncology, as there was no clear primary and tumor markers, including CEA and AFP at 125, were all within normal limits, and 19-9 was only mildly elevated. CT abd/pelvis showed Obstruction due to a mass in the hepatic flexure region of the colon. A stent is present at this site but it is probably obstructed. Extensive nodularity in the mesentery in the left upper quadrant consistent with neoplasm. . ROS Cardiovascular: no complaints Gastrointestinal: pain (obstipation) PMH/Family/Social Past Medical History Medical History: other (UC) Past Surgical History Past Surgical Hx: no surgical history Social History Alcohol Use: none Smoking Status: Former smoker Drug Use: none Exam/Review of Systems Vital Signs Vitals Vital Signs Date Time Temp Pulse Resp B/P Pulse Ox O2 Delivery O2 Flow Rate FiO2 11/18/16 19:34 98.4 89 20 173/80 96 11/17/16 22:28 Room Air Intake and Output 11/17/16 11/17/16 11/18/16 15:00 23:00 07:00 Intake Total 1000 ml Output Total 500 ml Balance 1000 ml -500 ml Exam Constitutional: alert, oriented Head: atraumatic, normocephalic Eyes: EOMI, PERRL Neck: non-tender, supple Respiratory: clear to auscultation, normal air movement Cardiovascular: nl pulses, regular rate and rhythm Gastrointestinal: soft, tender Extremities: normal pulses Labs Result Diagram: 11/18/1651611/18/16516 Medications Medications Current Medications Ondansetron HCl (Zofran Inj) 4 mg Q6H PRN IV NAUSEA AND/OR VOMITING; Start 05/27 at 00:00 Morphine Sulfate (morphine) 3 mg Q4H PRN IV FOR PAIN Last administered on 20:31; Admin Dose 3 MG; Start 11/18/16 at 00:00 Lorazepam 1 mg 1 mg Q6H PRN IV ANXIETY; Start 11/18/16 at 00:00 Dextrose/Sodium Chloride 1,000 ml @ 100 mls/hr Q10H IV Last administered on 20:10; Admin Dose 100 MLS/HR; Start 11/18/16 at 00:00 Cefazolin Sodium (Ancef 1 Gm/50 ml (Pmx)) 50 ml @ 100 mls/hr Q8 IVPB Last administered on 11/18/16 20:11; Admin Dose 100 MLS/HR; Start 11/18/16 at 20:00 Nicotine (Nicoderm 21 Mg/ 24hr) 1 patch DAILY TRANSDERM ; Start 11/19/16 at 09: 00 PRINCESS MARTIN MD November 18, 2016 21:28
--- NOTE | 2016-11-18 22:56 | CONS ---
DATE OF ADMISSION: 11/17/2016 DATE OF CONSULTATION: Dear Dr. Dsouza: Thank you for asking me to see Ms. Quiñones in GI consultation. HISTORY OF PRESENT ILLNESS: As you know, the patient is a 61-year-old female who h as been admitted to the hospital because of abdominal pain and vomiting, which she has been experien cing for the past several days. She is known to have chronic ulcerative colitis. She had a strictu re of the transverse colon a year ago, and at that time a self-expanding metal stent was placed colo noscopically into the transverse colon. Since then she has survived without any obstruction. Intra abdominal mass was suspected, and a biopsy was done, which was negative. However, she continues to lose a great deal of weight. She has been having vomiting and diarrhea lately. PAST MEDICAL HISTORY: She has history of smoking, hypercholesterolemia. She also has a mildly elev ated CA-19. She has depression. PHYSICAL EXAMINATION: GENERAL: The patient is a 61-year-old female who at this time is alert. She is th in built. She is cachectic. Nasogastric tube is in place. CARDIOVASCULAR: Normal heart sounds. RESPIRATORY: Normal breath sounds. ABDOMEN: Showed a soft abdomen with no palpable masses. No tenderness. However, abdomen is mildly distended. Certainly, some vague feeling of a mass can be appreciated on deep palpation. LABORATORY WORKUP: WBC count 14,900 last night, hemoglobin 12.5, platelet count 548,000. Creatinin e 1.19. Bilirubin 0.3, AST 27, ALT 30, alkaline phosphatase 126. The CAT scan of the abdomen shows evidence of possible obstruction at the site of a metal stent in t he transverse colon. CLINICAL IMPRESSION: The patient has a history of large bowel obstruction at this time, probably at the site of metal stent in the transverse colon. Intraabdominal masses have been recognized on the CAT scan. One biopsy was negative about a year ago in September, and more lesions were also noted on t he subsequent CAT scans. It appears that we are probably dealing with a carcinomatosis. PLAN: Patient seen by Dr. Padron and Dr. Spann and diagnostic laparoscopy and possible explorati on and possible colectomy have been planned for tomorrow. I agree with this approach. Once again, Dr. Dsouza, thank you for this consultation. Dictated By: TOM MOTA/NTS Conf#: [id number] DID#: [id number] CC: DAVID DSOUZA MD;*EndCC*
[2016-11-19] VITALS (17 sets, daily range): BP systolic 127–167; BP diastolic 70–94; PULSE 64–88; RESP 4–18
[2016-11-19] MEDS: morphine 4 MG/ML VIAL IV PRN ×3 (02:37→14:44)
[2016-11-19] MEDS: DEXTROSE 5%-0.45% NACL 1,000 ML IV SCH ×3 (05:47→09:36)
[2016-11-19] MEDS ORDERED: CEFAZOLIN 1 GM/50 ML (PMX) 50 ML IVPB SCH (06:00)
[2016-11-19] MEDS ORDERED: SUCCINYLCHOLINE CHLORIDE 100 MG/5 ML SYG IV ONE (07:00)
[2016-11-19 07:58] LABS: ADD SCAN DIFF NO
[2016-11-19 08:05] LABS: BASOPHILS % 0.2 % (0.0-2.0); EOSINOPHILS # 0.2 10^3/ul (0.0-0.5); EOSINOPHILS % 3.2 % (0.0-7.0); HEMATOCRIT 27.1 % (37.0-47.0); HEMOGLOBIN 8.4 g/dl (12.0-16.0); LYMPHOCYTES # 1.9 10^3/ul (0.8-2.9); LYMPHOCYTES % 35.1 % (15.0-51.0); MEAN CORPUSCULAR HEMOGLOBIN 29.5 pg (29.0-33.0); MEAN CORPUSCULAR VOLUME 95.1 fl (82.0-101.0); MEAN PLATELET VOLUME 9.6 fl (7.4-10.4); MONOCYTE # 0.6 10^3/ul (0.3-0.9); MONOCYTES % 11.4 % (0.0-11.0); NEUTROPHIL # 2.7 10^3/ul (1.6-7.5); NEUTROPHILS % 49.9 % (39.0-77.0); PLATELET COUNT 382 10^3/UL (140-415); RED BLOOD COUNT 2.85 10^6/ul (4.20-5.40); RED CELL DISTRIBUTION WIDTH 12.9 % (11.5-14.5); WHITE BLOOD COUNT 5.4 10^3/ul (4.8-10.8)
--- NOTE | 2016-11-19 09:03 | CONS ---
Date/Time of Note Date/Time of Note DATE: 11/19/16 TIME: 08:59 Assessment/Plan Assessment/Plan Chief Complaint/Hosp Course 61YO Woman h/o UC with colonic obstruction s/p stent in 06/25 now with obstipation and vomiting. Pt doing well, VS WNL, abdomen is soft, NTTP. Passed some stool but no gas. Ostomy nurse saw and marked. Labs OK. Pt is preop for diagnostic laparoscopy, possible laparotomy, segmental or total abdominal colectomy, ileostomy. Understands risks and benefits. Agreeable to procedure. Keep NPO, IVF, D/C'ed Ancef. Appreciate IM following, GI consult, ostomy nurse. Problems: Consultation Date/Type/Reason Admit Date/Time November 17, 2016 at 17:51 Initial Consult Date 11/17/16 Type of Consultation: Gen Surgical Referring Provider: VY OLEARY MD 24 HR Interval Summary Free Text/Dictation 61YO Woman h/o LBO preop for diagnostic laparoscopy, possible laparotomy, segmental or total abdominal colectomy, creation of ileostomy. Pt states she's OK. Clear fluid through NGT, passing some stool but no gas. No CP/SOB/F/C. Discussed risks and benefits of operation inculding bleeding, infection, damage to surrounding structures, need for future operations. Pt is agreeable. Will remain NPO with IVF Constitutional: no complaints Exam/Review of Systems Vital Signs Vitals Vital Signs Date Time Temp Pulse Resp B/P Pulse Ox O2 Delivery O2 Flow Rate FiO2 11/19/16 07:28 98.0 87 18 129/72 98 11/17/16 22:28 Room Air Intake and Output 11/18/16 11/18/16 11/19/16 15:00 23:00 07:00 Intake Total 1000 ml 1050 ml 850 ml Output Total 400 ml 100 ml Balance 1000 ml 650 ml 750 ml Exam Constitutional: alert, oriented Respiratory: clear to auscultation Cardiovascular: regular rate and rhythm Gastrointestinal: soft (mildly distended) Results Result Diagram: 11/19/16 0602 11/18/16 0517 Results 24 hrs Laboratory Tests Test 11/19/16 06:02 White Blood Count 5.4 # Red Blood Count 2.85 L Hemoglobin 8.4 L Hematocrit 27.1 L Mean Corpuscular Volume 95.1 Mean Corpuscular Hemoglobin 29.5 Mean Corpuscular Hemoglobin Concent 31.0 L Red Cell Distribution Width 12.9 Platelet Count 382 Mean Platelet Volume 9.6 Neutrophils % 49.9 Lymphocytes % 35.1 Monocytes % 11.4 H Eosinophils % 3.2 Basophils % 0.2 Nucleated Red Blood Cells % 0.0 Neutrophils # 2.7 Lymphocytes # 1.9 Monocytes # 0.6 Eosinophils # 0.2 Basophils # 0.0 Nucleated Red Blood Cells # 0.0 Medications Medications Current Medications Ondansetron HCl (Zofran Inj) 4 mg Q6H PRN IV NAUSEA AND/OR VOMITING; Start 05/27 at 00:00 Lorazepam 1 mg 1 mg Q6H PRN IV ANXIETY; Start 11/18/16 at 00:00 Dextrose/Sodium Chloride (D5-1/2ns) 1,000 ml @ 100 mls/hr Q10H IV Last administered on 11/18/16 20:10; Admin Dose 100 MLS/HR; Start 11/18/16 at 00:00 Nicotine (Nicoderm 21 Mg/ 24hr) 1 patch DAILY TRANSDERM ; Start 11/19/16 at 09: 00 Morphine Sulfate 4 mg 4 mg Q4H PRN IV PAIN Last administered on 11/19/16 02:37 ; Admin Dose 4 MG; Start 11/18/16 at 22:00 Cefazolin Sodium (Ancef 1 Gm/50 ml (Pmx)) 50 ml @ 100 mls/hr Q8 IVPB Last administered on 11/19/16 05:46; Admin Dose 100 MLS/HR; Start 11/19/16 at 06:00 PRINCESS DIAZ M.D. November 19, 2016 09:03
[2016-11-19 09:06] LABS: ALBUMIN 2.6 g/dl (3.3-4.9); BILIRUBIN,INDIRECT 0.4 mg/dl (0-1.1); BILIRUBIN,TOTAL 0.4 mg/dl (0.2-1.3); CALCIUM 8.3 mg/dl (8.4-10.2); CREATININE 0.85 mg/dl (0.44-1.00); POTASSIUM 3.5 mmol/L (3.5-5.1); TOTAL PROTEIN 5.4 g/dl (6.1-8.1)
[2016-11-19] MEDS: NICOTINE (21 MG/24 HR) PATCH TRANSDERM SCH (09:37)
--- NOTE | 2016-11-19 12:50 | PN ---
Date/Time of Note Date/Time of Note DATE: 11/19/16 TIME: 12:45 Assessment/Plan VTE Prophylaxis VTE Prophylaxis Intervention: SCD's Lines/Catheters IV Catheter Type (from Nrsg): Saline Lock Assessment/Plan Chief Complaint/Hosp Course Chief Complaint/Hosp Course 1. Abdominal pain - 2/2 to large bowel obstruction presumably CA - metastatic type -surgical consult with Dr. Padron and colorectal surgeon Dr. Spann been consulted, plan for diagnostic laparoscopy, to evaluate for any signs of carcinomatosis, -status post history of stent placement at the stricture site, - Oncology consultation with Dr. Stephens will be obtained - Continue IVF, pain medication -2D echocardiogram showed normal ejection fraction, patient is without any chest pain or shortness of breath 2. History of UC/Crohn's Continue medical management 3. Anemia of chronic disease Monitor 4. Smoking abuse patient counseled on cessation 5. GI ppx - protonix The patient has been admitted to Med/Surg. Consultation with colorectal surgeon has been obtain. Patient is NPO , IV fluid and pain medications has been initiated. Chest x-ray and EKG has been obtain. Patient denies of having any chest pain or shortness of breath. Patient Coagulation studies are within normal limits. EKG is without any acute process, no ST elevation or depression no sign of ischemia. Echocardiogram showed normal ejection fraction Chest x-ray does not demonstrate any acute cardiopulmonary disease. Risk and benefits of the surgery has been discussed with the patient/ and family. She presents with intermediate risk for any perioperative event due to her comorbidities. Patient may proceed directly to surgery with moderate risk for her upcoming surgery. Patient has been started on GI prophylaxis. We will follow up with orthopedic surgeon recommendation for DVT prophylaxis postoperatively. Problems: Subjective 24 Hr Interval Summary Free Text/Dictation Patient complains of having sore throat Denies of any chest pain or shortness of breath Anxious regarding upcoming procedure Exam/Review of Systems Vital Signs Vitals Vital Signs Date Time Temp Pulse Resp B/P Pulse Ox O2 Delivery O2 Flow Rate FiO2 11/19/16 07:28 98.0 87 18 129/72 98 11/17/16 22:28 Room Air Intake and Output 11/18/16 11/18/16 11/19/16 14:59 22:59 06:59 Intake Total 1000 ml 1050 ml 850 ml Output Total 400 ml 100 ml Balance 1000 ml 650 ml 750 ml Exam General: The patient is underweight, Not in acute distress. HEENT: Atraumatic, normocephalic. The pupils are equal and round . NG tube in place Neck: Supple with full range of motion. Chest: Normal expansion of the thorax during inspiration Lungs: Clear to auscultation bilaterally Heart: Normal S1-S2, Regular rhythm and rate. Abdomen: Soft , minimally tender, nondistended , bowel sounds are present. Extremities: Normal to inspection, no edema no cyanosis Neurologic: Normal mental status,The patient is awake, alert and oriented . Results Result Diagram: 11/19/1660111/19/16601 Results 24 hrs Laboratory Tests Test 11/19/16 06:02 White Blood Count 5.4 # Red Blood Count 2.85 L Hemoglobin 8.4 L Hematocrit 27.1 L Mean Corpuscular Volume 95.1 Mean Corpuscular Hemoglobin 29.5 Mean Corpuscular Hemoglobin Concent 31.0 L Red Cell Distribution Width 12.9 Platelet Count 382 Mean Platelet Volume 9.6 Neutrophils % 49.9 Lymphocytes % 35.1 Monocytes % 11.4 H Eosinophils % 3.2 Basophils % 0.2 Nucleated Red Blood Cells % 0.0 Neutrophils # 2.7 Lymphocytes # 1.9 Monocytes # 0.6 Eosinophils # 0.2 Basophils # 0.0 Nucleated Red Blood Cells # 0.0 Sodium Level 135 Potassium Level 3.5 Chloride Level 106 Carbon Dioxide Level 27 Anion Gap 6 L Blood Urea Nitrogen 11 # Creatinine 0.85 Glucose Level 91 Calcium Level 8.3 L Total Bilirubin 0.4 Direct Bilirubin 0.00 Indirect Bilirubin 0.4 Aspartate Amino Transf (AST/SGOT) 20 Alanine Aminotransferase (ALT/SGPT) 23 Alkaline Phosphatase 69 Total Protein 5.4 L Albumin 2.6 L Medications Medications Current Medications Ondansetron HCl (Zofran Inj) 4 mg Q6H PRN IV NAUSEA AND/OR VOMITING; Start 05/27 at 00:00 Lorazepam 1 mg 1 mg Q6H PRN IV ANXIETY; Start 11/18/16 at 00:00 Dextrose/Sodium Chloride (D5-1/2ns) 1,000 ml @ 100 mls/hr Q10H IV Last administered on 11/19/16t 09:36; Admin Dose 100 MLS/HR; Start 11/18/16 at 00:00 Nicotine (Nicoderm 21 Mg/ 24hr) 1 patch DAILY TRANSDERM Last administered on 09:37; Admin Dose 1 PATCH; Start 11/19/16 at 09:00 Morphine Sulfate (morphine) 4 mg Q4H PRN IV PAIN Last administered on 09:37; Admin Dose 4 MG; Start 11/18/16 at 22:00 HERRERA ZAMORA MD November 19, 2016 12:50
--- NOTE | 2016-11-19 14:55 | PN ---
Date/Time of Note Date/Time of Note DATE: 11/18/16 TIME: 14:52 Assessment/Plan Lines/Catheters IV C[facility]ter Type (from [facility]): Saline Lock Assessment/Plan Chief Complaint/Hosp Course 1. Abdominal pain, weight loss, nausea, vomiting, colonic recurrent obstruction at stent site and CT findings are suggestive of ulcerative colitis strictures versus neoplasm versus other. -N.p.o. -NG tube -IV fluid -Dr. Spann input appreciated. He plans to proceed with surgery as expected. However patient is making up her mind. 2. Weight loss secondary to above. 3. Ulcerative colitis. -Continue medical management per GI. 4. Leukocytosis, probably secondary to above. Treatment as above. 5. History of left upper quadrant abdominal mass status post biopsies, nonmalignant during previous hospitalization 6. Smoker. The patient is highly encouraged to stop smoking. 7. Hypercholesterolemia. Encourage diet optimization. Thank you, Late entry 11/18 Problems: Subjective 24 Hr Interval Summary Minimal pain. No cough. No seizure. No rashes. No bowel function. No headache visual or neurologic changes. No vomiting. Minimal nausea. NG tube in place. Dr. Spann notation noted however patient had been refusing surgical exploration but may be changing her mind. Exam/Review of Systems Vital Signs Vitals Vital Signs Date Time Temp Pulse Resp B/P Pulse Ox O2 Delivery O2 Flow Rate FiO2 11/19/16 13:20 98.2 79 16 162/89 100 Room Air Intake and Output 11/18/16 11/18/16 11/19/16 15:00 23:00 07:00 Intake Total 1000 ml 1050 ml 850 ml Output Total 400 ml 100 ml Balance 1000 ml 650 ml 750 ml Exam Free Text/Dictation GENERAL: No acute distress, comfortable, pleasant, and cachectic. HEENT: Pupils equal, reactive. No scleral icterus. Mucous membranes are somewhat dry. NECK: No crepitus, no JVD. Trachea is midline. CHEST: Normal respiratory effort. No wheezing. HEART: S1, S2 present. ABDOMEN: Soft, min tender. Distended. No rebound, no guarding, not rigid. EXTREMITIES: No edema. VASCULAR: Capillary refill is less than 2 seconds. NEUROLOGIC: Alert, oriented, moves all 4 extremities grossly. LYMPHATICS: No palpable lymph nodes in periauricular, cervical, or supraclavicular. Small lymph nodes in the groins. SKIN: No rashes. No jaundice. Results Result Diagram: 11/19/1660111/19/1602 SHAYAN PABLO MD November 19, 2016 14:55
--- NOTE | 2016-11-19 14:56 | PN ---
Date/Time of Note Date/Time of Note DATE: 11/19/16 TIME: 14:55 Assessment/Plan Lines/Catheters IV [facility] Saline Lock Assessment/Plan Chief Complaint/Hosp Course 1. Abdominal pain, weight loss, nausea, vomiting, colonic recurrent obstruction at stent site and CT findings are suggestive of ulcerative colitis strictures versus neoplasm versus other. -N.p.o. -NG tube -IV fluid -OR with Dr. Spann today > will sign off at this time 2. Weight loss secondary to above. 3. Ulcerative colitis. -Continue medical management per GI. 4. Leukocytosis, probably secondary to above. Treatment as above. 5. History of left upper quadrant abdominal mass status post biopsies, nonmalignant during previous hospitalization 6. Smoker. The patient is highly encouraged to stop smoking. 7. Hypercholesterolemia. Encourage diet optimization. Thank you, Problems: Subjective 24 Hr Interval Summary OR with Dr. Spann today. Minimal pain. No cough. No seizure. No rashes. No bowel function. No headache visual or neurologic changes. No vomiting. Minimal nausea. NG tube in place. Exam/Review of Systems Vital Signs Vitals Vital Signs Date Time Temp Pulse Resp B/P Pulse Ox O2 Delivery O2 Flow Rate FiO2 11/19/16 13:20 98.2 79 16 162/89 100 Room Air Intake and Output 11/18/16 11/18/16 11/19/16 15:00 23:00 07:00 Intake Total 1000 ml 1050 ml 850 ml Output Total 400 ml 100 ml Balance 1000 ml 650 ml 750 ml Exam Free Text/Dictation GENERAL: No acute distress, comfortable, pleasant, and cachectic. HEENT: Pupils equal, reactive. No scleral icterus. Mucous membranes are somewhat dry. NECK: No crepitus, no JVD. Trachea is midline. CHEST: Normal respiratory effort. No wheezing. HEART: S1, S2 present. ABDOMEN: Soft, min tender. Distended. No rebound, no guarding, not rigid. EXTREMITIES: No edema. VASCULAR: Capillary refill is less than 2 seconds. NEUROLOGIC: Alert, oriented, moves all 4 extremities grossly. LYMPHATICS: No palpable lymph nodes in periauricular, cervical, or supraclavicular. Small lymph nodes in the groins. SKIN: No rashes. No jaundice. Results Result Diagram: 11/19/1660111/19/16601 SHAYAN PABLO MD November 19, 2016 14:56
[2016-11-19] MEDS ORDERED: FENTAnyl 50 MCG/ML VIAL ONE ×2 (16:31→17:55)
[2016-11-19] MEDS ORDERED: ROCURONIUM 50 MG INJ ONE (16:31)
[2016-11-19] MEDS ORDERED: MIDAZOLAM 1 MG/ML 2 ML INJ ONE (16:31)
[2016-11-19] MEDS ORDERED: PROPOFOL 20 ML ONE (16:31)
--- NOTE | 2016-11-19 16:46 | CONS ---
Date/Time of Note Date/Time of Note DATE: 11/19/16 TIME: 16:38 Assessment/Plan Assessment/Plan Chief Complaint/Hosp Course Assessment: Pre-operative cardiac evaluation - planned for bowel surgery Bowel obstruction Intra-abdominal mass and possible malignancy Ulcerative colitis Dyslipidemia Tobacco use Recommendations: -low cardiac risk patient planned for moderate cardiac risk procedure -echocardiogram shows normal LVEF 55-60%, no significant valvular disease -no evidence of unstable cardiac condition, patient optimized for surgery from cardiac standpoint -continue statin -patient counselled on smoking cessation Problems: Consultation Date/Type/Reason Admit Date/Time November 17, 2016 at 17:51 Type of Consultation: Cardiology Reason for Consultation pre-operative evaluation Referring Provider: HERRERA ZAMORA MD Hx of Present Illness The patient is a 61 year-old female with ulcerative colitis who presents with abdominal pain and vomiting. She has been found to have a bowel obstruction, and is planned for surgical intervention. She has a history of transverse colon stricture, which was previously treated with stenting. She denies a history of heart disease. She denies chest pain, shortness of breath, palpitations, presyncope or syncope. 14 point review of systems negative other than per HPI. Past Medical History Dyslipidemia Ulcerative colitis Past Surgical History Past Surgical Hx: no surgical history Family History Significant Family History: hypertension Social History Alcohol Use: none Smoking Status: Current every day smoker Drug Use: none Exam/Review of Systems Vital Signs Vitals Vital Signs Date Time Temp Pulse Resp B/P Pulse Ox O2 Delivery O2 Flow Rate FiO2 11/19/16 13:20 98.2 79 16 162/89 100 Room Air Intake and Output 11/18/16 11/18/16 11/19/16 15:00 23:00 07:00 Intake Total 1000 ml 1050 ml 850 ml Output Total 400 ml 100 ml Balance 1000 ml 650 ml 750 ml Exam Constitutional: alert, well developed Psych: nl mood/affect, no complaints Head: atraumatic, normocephalic Eyes: nl conjunctiva, nl lids ENMT: nl external ears & nose, nl nasal mucosa & septum Neck: non-tender, supple, No jvd Respiratory: clear to auscultation, normal air movement Cardiovascular: regular rate and rhythm Gastrointestinal: distended, soft, tender Musculoskeletal: nl extremities to inspection Extremities: No clubbing, No cyanosis, No edema Neurological: nl mental status, nl speech Results Result Diagram: 11/19/16 0602 11/19/16 0602 Results 24 hrs Laboratory Tests Test 11/19/16 06:02 White Blood Count 5.4 # Red Blood Count 2.85 L Hemoglobin 8.4 L Hematocrit 27.1 L Mean Corpuscular Volume 95.1 Mean Corpuscular Hemoglobin 29.5 Mean Corpuscular Hemoglobin Concent 31.0 L Red Cell Distribution Width 12.9 Platelet Count 382 Mean Platelet Volume 9.6 Neutrophils % 49.9 Lymphocytes % 35.1 Monocytes % 11.4 H Eosinophils % 3.2 Basophils % 0.2 Nucleated Red Blood Cells % 0.0 Neutrophils # 2.7 Lymphocytes # 1.9 Monocytes # 0.6 Eosinophils # 0.2 Basophils # 0.0 Nucleated Red Blood Cells # 0.0 Sodium Level 135 Potassium Level 3.5 Chloride Level 106 Carbon Dioxide Level 27 Anion Gap 6 L Blood Urea Nitrogen 11 # Creatinine 0.85 Glucose Level 91 Calcium Level 8.3 L Total Bilirubin 0.4 Direct Bilirubin 0.00 Indirect Bilirubin 0.4 Aspartate Amino Transf (AST/SGOT) 20 Alanine Aminotransferase (ALT/SGPT) 23 Alkaline Phosphatase 69 Total Protein 5.4 L Albumin 2.6 L Medications Medications Current Medications Ondansetron HCl (Zofran Inj) 4 mg Q6H PRN IV NAUSEA AND/OR VOMITING; Start 05/27 at 00:00 Lorazepam 1 mg 1 mg Q6H PRN IV ANXIETY; Start 11/18/16 at 00:00 Dextrose/Sodium Chloride (D5-1/2ns) 1,000 ml @ 100 mls/hr Q10H IV Last administered on 11/19/16 09:36; Admin Dose 100 MLS/HR; Start 11/18/16 at 00:00 Nicotine (Nicoderm 21 Mg/ 24hr) 1 patch DAILY TRANSDERM Last administered on 09:37; Admin Dose 1 PATCH; Start 11/19/16 at 09:00 Morphine Sulfate (morphine) 4 mg Q4H PRN IV PAIN Last administered on 14:44; Admin Dose 4 MG; Start 11/18/16 at 22:00 Phenol (Cepastat Lozenge) 1 lozenge Q4H PRN MT PAIN; Start 11/19/16 at 13:00 MICHAEL STEVENS MD November 19, 2016 16:46
[2016-11-19] MEDS ORDERED: LIDOCAINE 1% (MPF) 30 ML INJ ONE (17:35)
[2016-11-19] MEDS ORDERED: BUPIVACAINE 0.5%/EPI (SDV) 30 ML INJ ONE (17:35)
[2016-11-19] MEDS ORDERED: LABETALOL HCL 20MG INJ ONE (17:55)
[2016-11-19] MEDS ORDERED: ONDANSETRON 4 MG INJ ONE (18:05)
[2016-11-19] MEDS ORDERED: DEXAMETHASONE 4 MG/ML 1 ML INJ ONE (18:05)
[2016-11-19] MEDS ORDERED: METOCLOPRAMIDE 10 MG INJ ONE (18:05)
[2016-11-19] MEDS ORDERED: FAMOTIDINE 20 MG INJ ONE (18:05)
[2016-11-19] MEDS ORDERED: ROPIVACAINE 0.2% 20 ML VIAL ONE (18:42)
[2016-11-19] MEDS ORDERED: GLYCOPYRROLATE 0.4 MG INJ ONE (18:53)
[2016-11-19] MEDS ORDERED: NEOSTIGMINE 3 MG/3 ML SYRINGE ONE (18:53)
[2016-11-19] MEDS ORDERED: MEPERIDINE 25 MG INJ IV PRN (19:30)
[2016-11-19] MEDS ORDERED: ONDANSETRON 4 MG INJ IV PRN ×2 (19:30→20:30)
[2016-11-19] MEDS ORDERED: FENTAnyl 50 MCG/ML VIAL IV PRN ×2 (19:30)
[2016-11-19] MEDS ORDERED: EPHEDrine SULFATE 50 MG/5 ML SYG IV PRN (19:30)
[2016-11-19] MEDS ORDERED: LABETALOL HCL 20MG INJ IV PRN (19:30)
[2016-11-19] MEDS ORDERED: DIPHENHYDRAMINE 50 MG INJ IV PRN ×2 (19:30→20:30)
[2016-11-19] MEDS ORDERED: HYDROmorphONE (0.2 MG/ML) 10ML SYG IV PRN (19:30)
[2016-11-19] MEDS ORDERED: hydrALAzine 20 MG INJ IV PRN (19:30)
[2016-11-19] MEDS ORDERED: morphine (1 MG/ML) 10ML SYRINGE IV PRN ×3 (19:30)
--- NOTE | 2016-11-19 19:36 | OPR ---
Date/Time of Note Date/Time of Note DATE: 11/19/16 TIME: 19:33 Operative Report Procedure Date: November 19, 2016 Preoperative Diagnosis Large Bowel Obstruction Postoperative Diagnosis Large Bowel Obstruction, no evidence of carcinomatosis Operation Performed Diagnostic laparoscopy, total abdominal colectomy and creation of end ileostomy Surgeon: PRINCESS DIAZ M.D. Co-Surgeon: THIAGO THOMAS MD Anesthesia: general Anesthesiologist: MANOLO MENDEZ MD Estimated Blood Loss: 50 - 100 ml's Specimens Total abdominal colectomy Tubes/Drains NGT, thompson Complications: None Pt Condition Post Procedure: stable Disposition: PACU Operative\Procedure Findings Distended cecum and ascending colon, stent palpable at proximal transverse colon PRINCESS DIAZ M.D. November 19, 2016 19:36
[2016-11-19] MEDS: HYDROmorphONE (0.2 MG/ML) 10ML SYG IV PRN ×3 (19:56→20:17)
[2016-11-19] MEDS: ACETAMINOPHEN 1000MG/100ML IV 100 ML IVPB SCH (20:20)
[2016-11-19] MEDS ORDERED: HYDROmorphONE 0.2 MG/ML PCA IV SCH (20:30)
[2016-11-19] MEDS ORDERED: NALOXONE (0.4 MG/ML) INJ IV PRN (20:30)
[2016-11-19] MEDS ORDERED: CEPASTAT LOZENGE MT PRN (20:30)
[2016-11-19] MEDS: CEFAZOLIN 2 GM/50 ML (PMX) 50 ML IVPB SCH (20:44)
--- NOTE | 2016-11-19 20:44 | OPR ---
DATE OF OPERATION: 11/19/2016 PROCEDURE: Diagnostic laparoscopy, total abdominal colectomy, and creation of ileostomy. PREOPERATIVE DIAGNOSIS: Large bowel obstruction. POSTOPERATIVE DIAGNOSIS: Large bowel obstruction, no evidence of carcinomatosis. ANESTHESIOLOGIST: . ELECTRICIAN STATION ASSISTANT: Gilmer Page MD. POSITION: Lithotomy. ESTIMATED BLOOD LOSS: 50 mL. IV FLUID: 2 liters. URINE OUTPUT: 500 mL. FINDINGS: 1. No evidence of carcinomatosis. 2. Large bowel obstruction in proximal transverse, stent palpable. INDICATIONS: This is a 61-year-old woman with a longstanding history of ulcerative colitis. Jeremy hein had a colonoscopy in November 2015 revealing some narrowing in the transverse colon. Biopsies [facility] the [facility] showed just inflammation. In June 2016, the patient ended up with a large bowel obstruction in the transverse colon. Dr. Perez placed a stent and the obstruction was cleared. I saw the naye montague in the office in November, wondering about a surgical plan. Patient was open at that time, but in a day or two the patient was admitted to [facility] with a large bowel obstruction. Patient had an NG tube placed and fluid was evacuated. I was consulted to see the patient. At the bedside , patient was pleasant. Abdomen was benign. Vitals were okay. Labs were okay. I discussed the ri sks and benefits of a diagnostic laparoscopy, possible segmental colon resection, possible total abd ominal colectomy and end ileostomy. I told the patient if there were signs of carcinomatosis as see n on prior CTs, I would only take out as much colon to remove the stent and bring up an ileostomy an d mucous fistula. If there was not any evidence, I would take out her abdominal colon and given an end ileostomy. The patient understood this and agreed to the procedure. I warned the patient of th e risks, including bleeding, infection, damage to surrounding structures, perforation, need for futu re operations. The patient understand that the ileostomy created is probably permanent. The jeremy hein was cleared by medical staff and went to the OR. PROCEDURE IN DETAIL: After obtaining consent, the patient was brought to the operating room. Afte r induction of anesthesia, a Fu was placed under sterile conditions and SCDs were applied. The p atient was prepped and draped in the usual sterile fashion. I began by placing a Rcuz port just b eneath the umbilicus. It was secured in place with two 2-0 Vicryl sutures. We insufflated the abdo men and placed a 30-degree 10 mm scope. We examined the entire colon, which was free of any carcino matosis. The liver appeared normal. Pelvis appeared normal. There were some mild adhesions, but n othing to indicate that there was a carcinomatosis of any kind. Given these findings, we decided to do a total abdominal colectomy. We made an incision starting in the port incision extending inferi amanda and superiorly. It measured approximately 7 cm. The fascia was divided and the abdomen was en tered. We placed a wound protector and began our colectomy. We began in the right lower quadrant. We freed the lateral attachments of the cecum appendix up thr ough the ascending colon. We then went across the attachment to the hepatic flexure, divided the om entum all the way to the splenic flexure. The splenic flexure was taken down, and the lateral attac hments of the descending colon were taken down. There was some definite hardening of the colon at t he proximal transverse and there were some lymph nodes. Once we got down the left colon through the sigmoid, we identified the rectum, and using a curved bowel divider, we divided the top of the rect um. Then using a LigaSure we divided the mesentery from the terminal ileum through the sigmoid colo n. There were several lymph nodes which were kept within the specimen to be sent. Once we had comp leted dissecting the mesentery, the specimen was put aside. We checked the whole abdomen and did no t see any signs of bleeding. The had marked the patient in the right lower quadrant. This marking appeared to be within a span of the rectus muscle. We grabbed the marked site with a Rain clamp. We made a square in the skin and divided down through the subcutaneous tissues using cautery. The fascia was identified an d divided in a cruciate manner. We spread the muscle with a peon and identified the peritoneum, whi ch was divided. I was able to place 2 fingers within. We then placed a Continental through this incisi on and grabbed the end of the terminal ileum. We then did our closure. Reinspected the abdomen. There did not appear to be any pathology or bleeding. We removed the woun d retractor. I closed the fascia using multiple interrupted #0 Vicryl sutures. Once this was compl eted, the wound was irrigated and closed using a 4-0 Monocryl suture. Our attention was then placed to maturing the stoma. We divided the staple line of the small bowel. There was some bleeding to indicate it was well perf used. Then using multiple 3-0 chromic sutures I matured the stoma. End of the case there was no bl eeding. The patient tolerated the procedure well. The patient was extubated in the OR and transported to [facility] PACU in good condition. I will talk to the family about findings. I have also discussed with the primary team. Dictated By: PRINCESS DIAZ MD DG/NTS Conf#: [id number] DID#: [id number] CC: SHAYAN PABLO MD; TOM PEREZ MD; PRINCESS MARTIN MD;*EndCC*
[2016-11-19 20:46] LABS: ADD SCAN DIFF NO
[2016-11-19 20:47] LABS: BASOPHILS % 0.2 % (0.0-2.0); EOSINOPHILS % 0.2 % (0.0-7.0); HEMATOCRIT 42.7 % (37.0-47.0); HEMOGLOBIN 13.6 g/dl (12.0-16.0); LYMPHOCYTES % 7.9 % (15.0-51.0); MEAN CORPUSCULAR HEMOGLOBIN 29.3 pg (29.0-33.0); MEAN CORPUSCULAR HGB CONC 31.9 g/dl (32.0-37.0); MEAN PLATELET VOLUME 8.8 fl (7.4-10.4); MONOCYTE # 0.3 10^3/ul (0.3-0.9); NEUTROPHIL # 11.3 10^3/ul (1.6-7.5); NEUTROPHILS % 89.4 % (39.0-77.0); PLATELET COUNT 370 10^3/UL (140-415); RED BLOOD COUNT 4.64 10^6/ul (4.20-5.40); RED CELL DISTRIBUTION WIDTH 13.8 % (11.5-14.5); WHITE BLOOD COUNT 12.6 10^3/ul (4.8-10.8)
[2016-11-19 21:11] LABS: ALBUMIN 2.5 g/dl (3.3-4.9); POTASSIUM 3.4 mmol/L (3.5-5.1)
[2016-11-19 21:13] LABS: CREATININE 0.7 mg/dl (0.44-1.00)
[2016-11-19 21:14] LABS: ALBUMIN/GLOBULIN RATIO 0.83; BILIRUBIN,INDIRECT 0.7 mg/dl (0-1.1); BILIRUBIN,TOTAL 0.7 mg/dl (0.2-1.3); TOTAL PROTEIN 5.5 g/dl (6.1-8.1)
[2016-11-19] MEDS: LACTATED RINGER'S 1,000 ML IV SCH (22:12)
[2016-11-20 00:46] VITALS: BP 126/74; RESP 20
[2016-11-20] MEDS: LACTATED RINGER'S 1,000 ML IV SCH ×2 (02:49→16:51)
[2016-11-20] MEDS: ACETAMINOPHEN 1000MG/100ML IV 100 ML IVPB SCH ×4 (02:49→21:15)
[2016-11-20] MEDS: CEFAZOLIN 2 GM/50 ML (PMX) 50 ML IVPB SCH ×2 (05:35→12:09)
[2016-11-20] MEDS ORDERED: hydrALAzine 20 MG INJ IV PRN (06:00)
[2016-11-20 06:35] LABS: ADD SCAN DIFF NO
[2016-11-20 06:48] LABS: BASOPHILS % 0.1 % (0.0-2.0); HEMATOCRIT 35.1 % (37.0-47.0); HEMOGLOBIN 11.1 g/dl (12.0-16.0); LYMPHOCYTES # 1.2 10^3/ul (0.8-2.9); LYMPHOCYTES % 7.9 % (15.0-51.0); MEAN CORPUSCULAR HEMOGLOBIN 28.8 pg (29.0-33.0); MEAN CORPUSCULAR HGB CONC 31.6 g/dl (32.0-37.0); MEAN CORPUSCULAR VOLUME 91.2 fl (82.0-101.0); MEAN PLATELET VOLUME 9.1 fl (7.4-10.4); MONOCYTE # 0.6 10^3/ul (0.3-0.9); MONOCYTES % 3.9 % (0.0-11.0); NEUTROPHIL # 13.7 10^3/ul (1.6-7.5); NEUTROPHILS % 87.7 % (39.0-77.0); PLATELET COUNT 409 10^3/UL (140-415); RED BLOOD COUNT 3.85 10^6/ul (4.20-5.40); WHITE BLOOD COUNT 15.6 10^3/ul (4.8-10.8)
[2016-11-20 07:11] LABS: ALBUMIN 2.6 g/dl (3.3-4.9); ALBUMIN/GLOBULIN RATIO 0.92; BILIRUBIN,INDIRECT 0.6 mg/dl (0-1.1); BILIRUBIN,TOTAL 0.6 mg/dl (0.2-1.3); CALCIUM 8.2 mg/dl (8.4-10.2); CREATININE 0.82 mg/dl (0.44-1.00); MAGNESIUM 1.4 mg/dl (1.7-2.5); POTASSIUM 4.1 mmol/L (3.5-5.1); TOTAL PROTEIN 5.4 g/dl (6.1-8.1)
[2016-11-20 07:45] VITALS: BP 143/70; RESP 18
[2016-11-20] MEDS: NICOTINE (21 MG/24 HR) PATCH TRANSDERM SCH (09:30)
--- NOTE | 2016-11-20 09:39 | PN ---
Date/Time of Note Date/Time of Note DATE: 11/20/16 TIME: 09:35 Assessment/Plan VTE Prophylaxis VTE Prophylaxis Intervention: ambulation, anti-embolic stocking, SCD's Lines/Catheters IV Catheter Type (from Nrsg): Peripheral IV Fu in Place (from Nrsg): Yes Assessment/Plan Assessment/Plan Pt is doing very wel s/o total colectomy / ileostomy Will clamp NG and DC if minimal output after 4 hrs Out of bed Subjective 24 Hr Interval Summary The pt is now POD #1 and is alert and oriented x 3. She denies nausea, and except for some occ abdominal pain is comfortable Constitutional: no complaints Feeding: NPO Exam/Review of Systems Vital Signs Vitals Vital Signs Date Time Temp Pulse Resp B/P Pulse Ox O2 Delivery O2 Flow Rate FiO2 11/20/16 07:45 98.7 104 18 143/70 96 11/19/16 22:00 Nasal Cannula 2.0 Intake and Output 11/19/16 11/19/16 11/20/16 15:00 23:00 07:00 Intake Total 750 ml 2500 ml 1250 ml Output Total 320 ml 800 ml Balance 750 ml 2180 ml 450 ml Exam Free Text/Dictation Abdomen is soft, and stoma is pink and patent Constitutional: alert, oriented Psych: no complaints Gastrointestinal: surgical scars, tender Results Result Diagram: 11/20/16 0550 11/20/16 0550 HILDA REES MD November 20, 2016 09:39
--- NOTE | 2016-11-20 15:48 | PN ---
Date/Time of Note Date/Time of Note DATE: 11/20/16 TIME: 15:46 Assessment/Plan VTE Prophylaxis VTE Prophylaxis Intervention: SCD's Lines/Catheters IV [facility] Type [facility] Peripheral IV Urinary Cath still in place: Yes Assessment/Plan Chief Complaint/Hosp Course Assessment and plan 1. Abdominal pain secondary to large bowel obstruction. Patient status post surgical intervention and diagnostic laparoscopy with total abdominal colectomy and creation of ileostomy. No reports of carcinomatosis found. Continue with surgeon recommendations. Continue with analgesics and IV hydration. 2. History of ulcerative colitis and Crohn's disease. Continue optimal medical management. 3. Anemia of chronic disease. H&H went stable. We'll monitor for now. 4. History of smoking. Cessation was advised GERD prophylaxis: PPI Problems: Subjective 24 Hr Interval Summary Free Text/Dictation Reports less pain at this time. Exam/Review of Systems Vital Signs Vitals Vital Signs Date Time Temp Pulse Resp B/P Pulse Ox O2 Delivery O2 Flow Rate FiO2 11/20/16 07:45 98.7 104 18 143/70 96 11/19/16 22:00 Nasal Cannula 2.0 Intake and Output 11/19/16 11/19/16 11/20/16 15:00 23:00 07:00 Intake Total 750 ml 2500 ml 1250 ml Output Total 320 ml 800 ml Balance 750 ml 2180 ml 450 ml Exam Constitutional: alert, oriented Psych: nl mood/affect Neck: No jvd Respiratory: clear to auscultation, normal air movement Cardiovascular: regular rate and rhythm Gastrointestinal: other (colostomy bag in place) Musculoskeletal: nl extremities to inspection Extremities: normal pulses Neurological: nl mental status, nl speech Results Result Diagram: 11/20/16 0550 11/20/16 0550 Results 24 hrs Laboratory Tests Test 11/19/16 20:40 11/20/16 05:50 White Blood Count 12.6 #H 15.6 #H Red Blood Count 4.64 # 3.85 L Hemoglobin 13.6 # 11.1 L Hematocrit 42.7 # 35.1 L Mean Corpuscular Volume 92.0 91.2 Mean Corpuscular Hemoglobin 29.3 28.8 L Mean Corpuscular Hemoglobin Concent 31.9 L 31.6 L Red Cell Distribution Width 13.8 14.0 Platelet Count 370 409 Mean Platelet Volume 8.8 9.1 Neutrophils % 89.4 H 87.7 H Lymphocytes % 7.9 L 7.9 L Monocytes % 2.0 3.9 Eosinophils % 0.2 0.0 Basophils % 0.2 0.1 Nucleated Red Blood Cells % 0.0 0.0 Neutrophils # 11.3 H 13.7 H Lymphocytes # 1.0 1.2 Monocytes # 0.3 0.6 Eosinophils # 0.0 0.0 Basophils # 0.0 0.0 Nucleated Red Blood Cells # 0.0 0.0 Sodium Level 135 137 Potassium Level 3.4 L 4.1 Chloride Level 102 104 Carbon Dioxide Level 24 29 Anion Gap 12 8 Blood Urea Nitrogen 8 7 Creatinine 0.70 0.82 Glucose Level 143 # 115 Calcium Level 8.0 L 8.2 L Total Bilirubin 0.7 0.6 Direct Bilirubin 0.00 0.00 Indirect Bilirubin 0.7 0.6 Aspartate Amino Transf (AST/SGOT) 24 16 Alanine Aminotransferase (ALT/SGPT) 20 30 Alkaline Phosphatase 62 70 Total Protein 5.5 L 5.4 L Albumin 2.5 L 2.6 L Globulin 3.00 2.80 Albumin/Globulin Ratio 0.83 0.92 Magnesium Level 1.4 L Medications Medications Current Medications Ondansetron HCl (Zofran Inj) 4 mg Q6H PRN IV NAUSEA AND/OR VOMITING; Start 05/27 at 00:00 Lorazepam (Ativan) 1 mg Q6H PRN IV ANXIETY; Start 11/18/16 at 00:00 Nicotine (Nicoderm 21 Mg/ 24hr) 1 patch DAILY TRANSDERM Last administered on 09:30; Admin Dose 1 PATCH; Start 11/19/16 at 09:00 Morphine Sulfate (morphine) 4 mg Q4H PRN IV PAIN Last administered on 09:37; Admin Dose 4 MG; Start 11/18/16 at 22:00 Phenol 1 lozenge 1 lozenge Q4H PRN MT PAIN; Start 11/19/16 at 13:00 Cefazolin Sodium/ Dextrose (Ancef 2 Gm/50 ml (Pmx)) 50 ml @ 100 mls/hr Q8H IVPB Last administered on 11/20/16 12:09; Admin Dose 100 MLS/HR; Start at 20:30; Stop 11/20/16 at 20:29 Diphenhydramine HCl (Benadryl) 25 mg Q6H PRN IV ITCHING; Start 11/19/16 at 20: 30 Ondansetron HCl 4 mg 4 mg Q6H PRN IV NAUSEA AND/OR VOMITING; Start 11/19/16 at 20:30 Lactated Ringer's (Lr) 1,000 ml @ 100 mls/hr Q10H IV Last administered on 11/20 02:49; Admin Dose 100 MLS/HR; Start 11/19/16 at 20:03 Phenol 1 lozenge 1 lozenge PRN PRN MT SORE THROAT; Start 11/19/16 at 20:30 Acetaminophen (Ofirmev 1000mg/ 100ml Iv) 100 ml @ 400 mls/hr Q6H IVPB Last administered on 11/20/16 15:15; Admin Dose 400 MLS/HR; Start 11/19/16 at 20:30 Naloxone HCl (Narcan) 0.2 mg Q2M PRN IV RR 8 BREATHS/MIN OR LESS; Start at 20:30 Hydromorphone HCl (Dilaudid MOTEL MANAGER) Q4PCA IV Last administered on 11/19/16 20:24 ; Admin Dose 6 MG; Start 11/19/16 at 20:30 Hydralazine HCl (Apresoline) 10 mg Q4H PRN IV ELEVATED SYSTOLIC BP Last administered on 11/20/16 06:14; Admin Dose 10 MG; Start 11/20/16 at 06:00 CAROL GABRIEL November 20, 2016 15:48
[2016-11-20] MEDS: CEPASTAT LOZENGE MT PRN ×2 (16:05→21:20)
[2016-11-20 19:44] VITALS: BP 167/90; RESP 20
[2016-11-20 21:15] VITALS: BP 156/84; PULSE 80; RESP 16
[2016-11-21] VITALS (8 sets, daily range): BP systolic 128–179; BP diastolic 60–102; PULSE 84–114; RESP 16–18
[2016-11-21] MEDS: LACTATED RINGER'S 1,000 ML IV SCH ×2 (02:03→02:31)
[2016-11-21] MEDS: ACETAMINOPHEN 1000MG/100ML IV 100 ML IVPB SCH ×4 (02:34→21:27)
[2016-11-21 05:39] LABS: ADD SCAN DIFF NO
[2016-11-21 05:41] LABS: BASOPHILS % 0.2 % (0.0-2.0); EOSINOPHILS # 0.1 10^3/ul (0.0-0.5); EOSINOPHILS % 0.6 % (0.0-7.0); HEMATOCRIT 33.3 % (37.0-47.0); HEMOGLOBIN 10.8 g/dl (12.0-16.0); LYMPHOCYTES # 1.4 10^3/ul (0.8-2.9); LYMPHOCYTES % 11.7 % (15.0-51.0); MEAN CORPUSCULAR HEMOGLOBIN 29.1 pg (29.0-33.0); MEAN CORPUSCULAR HGB CONC 32.4 g/dl (32.0-37.0); MEAN CORPUSCULAR VOLUME 89.8 fl (82.0-101.0); MEAN PLATELET VOLUME 8.8 fl (7.4-10.4); MONOCYTE # 0.6 10^3/ul (0.3-0.9); NEUTROPHIL # 9.9 10^3/ul (1.6-7.5); PLATELET COUNT 420 10^3/UL (140-415); RED BLOOD COUNT 3.71 10^6/ul (4.20-5.40); RED CELL DISTRIBUTION WIDTH 13.6 % (11.5-14.5)
[2016-11-21 06:05] LABS: ALBUMIN 2.3 g/dl (3.3-4.9)
[2016-11-21 06:06] LABS: POTASSIUM 3.2 mmol/L (3.5-5.1)
[2016-11-21 06:08] LABS: ALBUMIN/GLOBULIN RATIO 0.79; BILIRUBIN,INDIRECT 0.5 mg/dl (0-1.1); BILIRUBIN,TOTAL 0.5 mg/dl (0.2-1.3); CREATININE 0.77 mg/dl (0.44-1.00); TOTAL PROTEIN 5.2 g/dl (6.1-8.1)
[2016-11-21 06:09] LABS: CALCIUM 8.1 mg/dl (8.4-10.2)
[2016-11-21] MEDS: CEPASTAT LOZENGE MT PRN (07:32)
[2016-11-21] MEDS: NICOTINE (21 MG/24 HR) PATCH TRANSDERM SCH (08:18)
[2016-11-21] MEDS: ENOXAPARIN 30 MG/0.3 ML SYG SC SCH (10:05)
--- NOTE | 2016-11-21 11:12 | PN ---
Date/Time of Note Date/Time of Note DATE: 11/21/16 TIME: 11:06 Assessment/Plan VTE Prophylaxis VTE Prophylaxis Intervention: ambulation, LMWH, SCD's Lines/Catheters IV Catheter Type (from Nrsg): Peripheral IV Thompson in Place (from Nrsg): Yes Assessment/Plan Assessment/Plan Advance diet to full liquids, DC thompson, increase ambulation. Change IVF to include K+. Add Toradol BP ia a little high Subjective 24 Hr Interval Summary POD #2 Pt is alert and oriented x 3, and sitting up in chair. Tolerating clear liquids Only complaints re some abdominal pain w/ movement. No nausea Feeding: advancing diet Pain Control: well controlled Exam/Review of Systems Vital Signs Vitals Vital Signs Date Time Temp Pulse Resp B/P Pulse Ox O2 Delivery O2 Flow Rate FiO2 11/21/16 07:23 98.6 105 18 179/102 94 11/21/16 05:00 Room Air 11/19/16 22:00 2.0 Intake and Output 11/20/16 11/20/16 11/21/16 15:00 23:00 07:00 Intake Total 200 ml 1230 ml 1740 ml Output Total 530 ml 1650 ml Balance 200 ml 700 ml 90 ml Exam Constitutional: alert, oriented, well developed Cardiovascular: regular rate and rhythm Gastrointestinal: other (Stoma is pink), soft Results Result Diagram: 11/21/16 0435 11/21/16 0435 Procedures Procedures s/p Total colectomy / ileostomy HILDA REES MD November 21, 2016 11:12
[2016-11-21] MEDS: POTASSIUM CHLORIDE 10 MEQ in SOD CHLORIDE 0.45% 1,000 ML IV SCH ×2 (12:35→21:03)
[2016-11-21] MEDS: METOPROLOL 25 MG TAB PO SCH ×2 (12:36→21:32)
--- NOTE | 2016-11-21 12:55 | PN ---
Date/Time of Note Date/Time of Note DATE: 11/21/16 TIME: 12:52 Assessment/Plan VTE Prophylaxis VTE Prophylaxis Intervention: LMWH Lines/Catheters IV Catheter Type (from Nrs): Peripheral IV Urinary Cath still in place: Yes Assessment/Plan Chief Complaint/Hosp Course Assessment and plan 1. Abdominal pain secondary to large bowel obstruction. Patient status post surgical intervention and diagnostic laparoscopy with total abdominal colectomy and creation of ileostomy. No reports of carcinomatosis found. Continue with surgeon recommendations. Continue with analgesics and IV hydration. advance diet per surgeon recs 2. History of ulcerative colitis and Crohn's disease. Continue optimal medical management. 3. Anemia of chronic disease. H&H went stable. We'll monitor for now. 4. History of smoking. Cessation was advised 5. hypertension. cont on antihypertensives and adjust as needed GERD prophylaxis: PPI DISPO.PLAN: continue to advance diet per surgeon recs. antihypertensives added for hypertension . continue inpatient monitoring Discussed plan of care with Dr. Dsouza Problems: Subjective 24 Hr Interval Summary Free Text/Dictation sitting in chair. family at bedside. reports some pain in abdomen but less Exam/Review of Systems Vital Signs Vitals Vital Signs Date Time Temp Pulse Resp B/P Pulse Ox O2 Delivery O2 Flow Rate FiO2 11/21/16 07:23 98.6 105 18 179/102 94 11/21/16 05:00 Room Air 11/19/16 22:00 2.0 Intake and Output 11/20/16 11/20/16 11/21/16 15:00 23:00 07:00 Intake Total 200 ml 1230 ml 1740 ml Output Total 530 ml 1650 ml Balance 200 ml 700 ml 90 ml Exam Constitutional: alert, oriented Psych: nl mood/affect Neck: No jvd Respiratory: clear to auscultation, normal air movement Cardiovascular: regular rate and rhythm Gastrointestinal: other (colostomy bag in place) Musculoskeletal: nl extremities to inspection Extremities: normal pulses Neurological: nl mental status, nl speech Results Result Diagram: 11/21/16 0435 11/21/16 0435 Results 24 hrs Laboratory Tests Test 11/21/16 04:35 White Blood Count 12.0 #H Red Blood Count 3.71 L Hemoglobin 10.8 L Hematocrit 33.3 L Mean Corpuscular Volume 89.8 Mean Corpuscular Hemoglobin 29.1 Mean Corpuscular Hemoglobin Concent 32.4 Red Cell Distribution Width 13.6 Platelet Count 420 H Mean Platelet Volume 8.8 Neutrophils % 82.0 H Lymphocytes % 11.7 L Monocytes % 5.0 Eosinophils % 0.6 Basophils % 0.2 Nucleated Red Blood Cells % 0.0 Neutrophils # 9.9 H Lymphocytes # 1.4 Monocytes # 0.6 Eosinophils # 0.1 Basophils # 0.0 Nucleated Red Blood Cells # 0.0 Sodium Level 135 Potassium Level 3.2 L Chloride Level 100 Carbon Dioxide Level 27 Anion Gap 11 Blood Urea Nitrogen 6 L Creatinine 0.77 Glucose Level 83 Calcium Level 8.1 L Total Bilirubin 0.5 Direct Bilirubin 0.00 Indirect Bilirubin 0.5 Aspartate Amino Transf (AST/SGOT) 18 Alanine Aminotransferase (ALT/SGPT) 25 Alkaline Phosphatase 68 Total Protein 5.2 L Albumin 2.3 L Globulin 2.90 Albumin/Globulin Ratio 0.79 Medications Medications Current Medications Ondansetron HCl (Zofran Inj) 4 mg Q6H PRN IV NAUSEA AND/OR VOMITING; Start 05/27 at 00:00 Lorazepam (Ativan) 1 mg Q6H PRN IV ANXIETY; Start 11/18/16 at 00:00 Nicotine (Nicoderm 21 Mg/ 24hr) 1 patch DAILY TRANSDERM Last administered on 08:18; Admin Dose 1 PATCH; Start 11/19/16 at 09:00 Morphine Sulfate (morphine) 4 mg Q4H PRN IV PAIN Last administered on 09:37; Admin Dose 4 MG; Start 11/18/16 at 22:00 Phenol (Cepastat Lozenge) 1 lozenge Q4H PRN MT PAIN Last administered on 07:32; Admin Dose 1 LOZENGE; Start 11/19/16 at 13:00 Diphenhydramine HCl (Benadryl) 25 mg Q6H PRN IV ITCHING; Start 11/19/16 at 20: 30 Ondansetron HCl 4 mg 4 mg Q6H PRN IV NAUSEA AND/OR VOMITING; Start 11/19/16 at 20:30 Lactated Ringer's (Lr) 1,000 ml @ 100 mls/hr Q10H IV Last administered on 11/21 02:31; Admin Dose 100 MLS/HR; Start 11/19/16 at 20:03 Phenol 1 lozenge 1 lozenge PRN PRN MT SORE THROAT; Start 11/19/16 at 20:30 Acetaminophen (Ofirmev 1000mg/ 100ml Iv) 100 ml @ 400 mls/hr Q6H IVPB Last administered on 11/21/16 08:19; Admin Dose 400 MLS/HR; Start 11/19/16 at 20:30 Naloxone HCl (Narcan) 0.2 mg Q2M PRN IV RR 8 BREATHS/MIN OR LESS; Start at 20:30 Hydromorphone HCl (Dilaudid [employer] ARTISTIC DIRECTOR) Q4PCA IV Last administered on 11/19/16 20:24 ; Admin Dose 6 MG; Start 11/19/16 at 20:30 Hydralazine HCl (Apresoline) 10 mg Q4H PRN IV ELEVATED SYSTOLIC BP Last administered on 11/20/16 06:14; Admin Dose 10 MG; Start 11/20/16 at 06:00 Enoxaparin Sodium (Lovenox) 30 mg DAILY SC Last administered on 11/21/16 10:05 ; Admin Dose 30 MG; Start 11/21/16 at 09:00 Ketorolac Tromethamine 15 mg 15 mg Q8 IV ; Start 11/21/16 at 14:00; Stop at 13:59 Potassium Chloride/Sodium Chloride (KCl/1/2 NS) 1,005 ml @ 100 mls/hr Q10H3M IV Last administered on 11/21/16 12:35; Admin Dose 100 MLS/HR; Start 11/21/16 at 11:00 Metoprolol Tartrate (Lopressor) 25 mg BID PO Last administered on 11/21/16 12: 36; Admin Dose 25 MG; Start 11/21/16 at 11:30 CAROL GABRIEL November 21, 2016 12:55
--- NOTE | 2016-11-21 13:11 | OPPN ---
Date/Time of Note Date/Time of Note DATE: 11/21/16 TIME: 13:11 Post-Anesthesia Notes Post-Anesthesia Note Last documented vital signs Vital Signs Date Time Temp Pulse Resp B/P Pulse Ox O2 Delivery O2 Flow Rate FiO2 11/21/16 07:23 98.6 105 18 179/102 94 11/21/16 05:00 Room Air 11/19/16 22:00 2.0 Activity: WNL Respiratory function: WNL Cardiovascular function: WNL Mental status: Baseline Pain reasonably controlled: Yes Hydration appropriate: Yes Nausea/Vomiting absent: Yes MANOLO MENDEZ MD November 21, 2016 13:11
[2016-11-21] MEDS: KETOROLAC 15 MG INJ IV SCH ×2 (14:21→22:52)
[2016-11-21] MEDS ORDERED: AMLODIPINE 5 MG TAB PO ONE ×2 (18:00→23:30)
[2016-11-21] MEDS: AMLODIPINE 5 MG TAB PO SCH (23:05)
[2016-11-22] MEDS: POTASSIUM CHLORIDE 10 MEQ in SOD CHLORIDE 0.45% 1,000 ML IV SCH (01:26)
[2016-11-22] MEDS: ACETAMINOPHEN 1000MG/100ML IV 100 ML IVPB SCH ×2 (02:35→08:30)
[2016-11-22] MEDS: KETOROLAC 15 MG INJ IV SCH (06:01)
[2016-11-22 06:42] LABS: ADD SCAN DIFF NO
[2016-11-22 06:46] LABS: BASOPHILS % 0.2 % (0.0-2.0); EOSINOPHILS # 0.1 10^3/ul (0.0-0.5); EOSINOPHILS % 1.6 % (0.0-7.0); HEMATOCRIT 31.5 % (37.0-47.0); HEMOGLOBIN 10.1 g/dl (12.0-16.0); LYMPHOCYTES # 1.7 10^3/ul (0.8-2.9); LYMPHOCYTES % 19.9 % (15.0-51.0); MEAN CORPUSCULAR HEMOGLOBIN 28.9 pg (29.0-33.0); MEAN CORPUSCULAR HGB CONC 32.1 g/dl (32.0-37.0); MEAN CORPUSCULAR VOLUME 90.3 fl (82.0-101.0); MEAN PLATELET VOLUME 8.8 fl (7.4-10.4); MONOCYTE # 0.7 10^3/ul (0.3-0.9); MONOCYTES % 7.7 % (0.0-11.0); NEUTROPHILS % 70.1 % (39.0-77.0); PLATELET COUNT 421 10^3/UL (140-415); RED BLOOD COUNT 3.49 10^6/ul (4.20-5.40); RED CELL DISTRIBUTION WIDTH 13.3 % (11.5-14.5); WHITE BLOOD COUNT 8.6 10^3/ul (4.8-10.8)
[2016-11-22 07:12] LABS: ALBUMIN 2.3 g/dl (3.3-4.9); ALBUMIN/GLOBULIN RATIO 0.79; BILIRUBIN,INDIRECT 0.4 mg/dl (0-1.1); BILIRUBIN,TOTAL 0.4 mg/dl (0.2-1.3); CALCIUM 8.2 mg/dl (8.4-10.2); CREATININE 0.75 mg/dl (0.44-1.00); POTASSIUM 3.6 mmol/L (3.5-5.1); TOTAL PROTEIN 5.2 g/dl (6.1-8.1)
[2016-11-22 08:01] VITALS: BP 119/79; RESP 19
[2016-11-22] MEDS: METOPROLOL 25 MG TAB PO SCH ×2 (09:02→21:10)
[2016-11-22] MEDS: AMLODIPINE 5 MG TAB PO SCH ×2 (09:02→21:10)
--- NOTE | 2016-11-22 09:02 | PN ---
Date/Time of Note Date/Time of Note DATE: 11/22/16 TIME: 08:59 Assessment/Plan VTE Prophylaxis VTE Prophylaxis Intervention: ambulation, LMWH, SCD's Lines/Catheters IV Catheter Type (from Nrsg): Peripheral IV Urinary Cath still in place: No Assessment/Plan Chief Complaint/Hosp Course 61YO Woman h/o UC with colonic obstruction s/p stent in 06/25 now POD3 TAC. Doing extraordinarily well. OOB, tolerating diet, stoma functioning with good output. Urinating well. Pain controlled. Plan is soft diet, continue OOB, D/ C IVF and MANAGER CASE. Start PRN Advil and Tylenol per pt request. Will order [place] PRN if pt wants it. Ostomy nurse should see today and machine adjuster leader case trim as if pt tolerates diet and continues to do well should go home tomorrow. Med mgmt per primary team. Problems: Subjective 24 Hr Interval Summary Free Text/Dictation 61YO Woman h/o UC/LBO s/p TAC now POD3. Pt is doing extremely well. Tolerating diet, OOB, urinating well, ostomy functioning. Pain controlled. No F/C/SOB/CP. Constitutional: no complaints Respiratory: no complaints Cardiovascular: no complaints Gastrointestinal: pain (mild, with movement) Exam/Review of Systems Vital Signs Vitals Vital Signs Date Time Temp Pulse Resp B/P Pulse Ox O2 Delivery O2 Flow Rate FiO2 11/22/16 08:01 98.0 71 19 119/79 97 11/21/16 20:00 Room Air 11/19/16 22:00 2.0 Intake and Output 11/21/16 11/21/16 11/22/16 15:00 23:00 07:00 Intake Total 700 ml 1400 ml 1725 ml Output Total 150 ml 1600 ml Balance 700 ml 1250 ml 125 ml Exam Constitutional: alert, oriented Cardiovascular: regular rate and rhythm Gastrointestinal: soft (non-distended, wound C/D/I, ostomy pink with stool and gas in bag) Results Result Diagram: 11/22/16 0609 11/22/16 0609 Results 24 hrs Laboratory Tests Test 11/22/16 06:09 White Blood Count 8.6 # Red Blood Count 3.49 L Hemoglobin 10.1 L Hematocrit 31.5 L Mean Corpuscular Volume 90.3 Mean Corpuscular Hemoglobin 28.9 L Mean Corpuscular Hemoglobin Concent 32.1 Red Cell Distribution Width 13.3 Platelet Count 421 H Mean Platelet Volume 8.8 Neutrophils % 70.1 Lymphocytes % 19.9 Monocytes % 7.7 Eosinophils % 1.6 Basophils % 0.2 Nucleated Red Blood Cells % 0.0 Neutrophils # 6.0 Lymphocytes # 1.7 Monocytes # 0.7 Eosinophils # 0.1 Basophils # 0.0 Nucleated Red Blood Cells # 0.0 Sodium Level 134 L Potassium Level 3.6 Chloride Level 105 Carbon Dioxide Level 28 Anion Gap 5 L Blood Urea Nitrogen 4 L Creatinine 0.75 Glucose Level 97 Calcium Level 8.2 L Total Bilirubin 0.4 Direct Bilirubin 0.00 Indirect Bilirubin 0.4 Aspartate Amino Transf (AST/SGOT) 18 Alanine Aminotransferase (ALT/SGPT) 25 Alkaline Phosphatase 67 Total Protein 5.2 L Albumin 2.3 L Globulin 2.90 Albumin/Globulin Ratio 0.79 Medications Medications Current Medications Lorazepam (Ativan) 1 mg Q6H PRN IV ANXIETY; Start 11/18/16 at 00:00 Nicotine (Nicoderm 21 Mg/ 24hr) 1 patch DAILY TRANSDERM Last administered on 08:18; Admin Dose 1 PATCH; Start 11/19/16 at 09:00 Morphine Sulfate (morphine) 4 mg Q4H PRN IV PAIN Last administered on 09:37; Admin Dose 4 MG; Start 11/18/16 at 22:00 Diphenhydramine HCl (Benadryl) 25 mg Q6H PRN IV ITCHING; Start 11/19/16 at 20: 30 Ondansetron HCl (Zofran Inj) 4 mg Q6H PRN IV NAUSEA AND/OR VOMITING; Start 06/26 at 20:30 Phenol 1 lozenge 1 lozenge PRN PRN MT SORE THROAT; Start 11/19/16 at 20:30 Acetaminophen (Ofirmev 1000mg/ 100ml Iv) 100 ml @ 400 mls/hr Q6H IVPB Last administered on 11/22/16 02:35; Admin Dose 400 MLS/HR; Start 11/19/16 at 20:30 Naloxone HCl (Narcan) 0.2 mg Q2M PRN IV RR 8 BREATHS/MIN OR LESS; Start at 20:30 Hydromorphone HCl (Dilaudid MANAGER CASE) Q4PCA IV Last administered on 11/19/16 20:24 ; Admin Dose 6 MG; Start 11/19/16 at 20:30 Hydralazine HCl (Apresoline) 10 mg Q4H PRN IV ELEVATED SYSTOLIC BP Last administered on 11/20/16 06:14; Admin Dose 10 MG; Start 11/20/16 at 06:00 Enoxaparin Sodium (Lovenox) 30 mg DAILY SC Last administered on 11/21/16 10:05 ; Admin Dose 30 MG; Start 11/21/16 at 09:00 Ketorolac Tromethamine 15 mg 15 mg Q8 IV Last administered on 11/22/16 06:01; Admin Dose 15 MG; Start 11/21/16 at 14:00; Stop 11/23/16 at 13:59 Potassium Chloride/Sodium Chloride (KCl/1/2 NS) 1,005 ml @ 100 mls/hr Q10H3M IV Last administered on 11/22/16 01:26; Admin Dose 100 MLS/HR; Start 11/21/16 at 11:00 Metoprolol Tartrate (Lopressor) 25 mg BID PO Last administered on 11/21/16 21: 32; Admin Dose 25 MG; Start 11/21/16 at 11:30 Amlodipine Besylate (Norvasc) 5 mg BID PO Last administered on 11/21/16 23:05 ; Admin Dose 5 MG; Start 11/21/16 at 23:00 PRINCESS DIAZ M.D. November 22, 2016 09:02
[2016-11-22] MEDS: ENOXAPARIN 30 MG/0.3 ML SYG SC SCH (09:04)
[2016-11-22] MEDS: NICOTINE (21 MG/24 HR) PATCH TRANSDERM SCH (09:05)
[2016-11-22] MEDS ORDERED: IBUPROFEN 200 MG TAB PO PRN (09:30)
[2016-11-22] MEDS ORDERED: IBUPROFEN 600 MG TAB PO PRN (09:30)
[2016-11-22] MEDS ORDERED: HYDROCODONE/APAP (5/325) TAB PO PRN (09:30)
[2016-11-22] MEDS ORDERED: ACETAMINOPHEN 325 MG TAB PO PRN (09:30)
--- NOTE | 2016-11-22 11:34 | CONS ---
DATE OF ADMISSION: 11/17/2016 DATE OF CONSULTATION: CLINICAL IMPRESSION: The patient underwent exploratory laparotomy and total colectomy for chronic u lcerative colitis with possible metastatic disease; however, on laparotomy, no malignancy noted, no carcinoma of the colon was noted, and there was a stricture noted proximal to the stent, and the pat ient underwent total colectomy and she has ileostomy at this time. PHYSICAL EXAMINATION: GENERAL: The patient is alert. She is thin built. She is cachectic. VITAL SIGNS: Blood pressure is 119/79, temperature is 98, pulse is 71. ABDOMEN: Unremarkable. She has ileostomy. LABORATORY FUNCTIONS: The hemoglobin 10.1, WBC count 8600. Potassium 3.6. Pathology of the colon is pending. CLINICAL IMPRESSION: Status post total colectomy for chronic ulcerative colitis. No carcinoma noted. PLAN: Recommend continue present management. Dictated By: TMO MOTA/CISCO Conf#: [id number] DID#: [id number]
--- NOTE | 2016-11-22 13:20 | PN ---
Date/Time of Note Date/Time of Note DATE: 11/22/16 TIME: 13:19 Assessment/Plan VTE Prophylaxis VTE Prophylaxis Intervention: other Lines/Catheters IV Catheter Type (from Nrs): Peripheral IV Urinary Cath still in place: No Assessment/Plan Assessment/Plan 1. Abdominal pain secondary to large bowel obstruction. Patient status post surgical intervention and diagnostic laparoscopy with total abdominal colectomy and creation of ileostomy. No reports of carcinomatosis found. Continue with surgeon recommendations. Continue with analgesics and IV hydration. advance diet per surgeon recs 2. History of ulcerative colitis and Crohn's disease. Continue optimal medical management. 3. Anemia of chronic disease. H&H went stable. We'll monitor for now. 4. History of smoking. Cessation was advised 5. hypertension. cont on antihypertensives and adjust as needed GERD prophylaxis: PPI Subjective 24 Hr Interval Summary Free Text/Dictation pain improving, SBO resolved, tolerating diet well Exam/Review of Systems Vital Signs Vitals Vital Signs Date Time Temp Pulse Resp B/P Pulse Ox O2 Delivery O2 Flow Rate FiO2 11/22/16 08:01 98.0 71 19 119/79 97 11/21/16 20:00 Room Air 11/19/16 22:00 2.0 Intake and Output 11/21/16 11/21/16 11/22/16 15:00 23:00 07:00 Intake Total 700 ml 1400 ml 1725 ml Output Total 150 ml 1600 ml Balance 700 ml 1250 ml 125 ml Exam Constitutional: alert, oriented Psych: nl mood/affect Neck: No jvd Respiratory: clear to auscultation, normal air movement Cardiovascular: regular rate and rhythm Gastrointestinal: other (colostomy bag in place) Musculoskeletal: nl extremities to inspection Extremities: normal pulses Neurological: nl mental status, nl speech Results Result Diagram: 11/22/16 0609 11/22/16 0609 Results 24 hrs Laboratory Tests Test 11/22/16 06:09 White Blood Count 8.6 # Red Blood Count 3.49 L Hemoglobin 10.1 L Hematocrit 31.5 L Mean Corpuscular Volume 90.3 Mean Corpuscular Hemoglobin 28.9 L Mean Corpuscular Hemoglobin Concent 32.1 Red Cell Distribution Width 13.3 Platelet Count 421 H Mean Platelet Volume 8.8 Neutrophils % 70.1 Lymphocytes % 19.9 Monocytes % 7.7 Eosinophils % 1.6 Basophils % 0.2 Nucleated Red Blood Cells % 0.0 Neutrophils # 6.0 Lymphocytes # 1.7 Monocytes # 0.7 Eosinophils # 0.1 Basophils # 0.0 Nucleated Red Blood Cells # 0.0 Sodium Level 134 L Potassium Level 3.6 Chloride Level 105 Carbon Dioxide Level 28 Anion Gap 5 L Blood Urea Nitrogen 4 L Creatinine 0.75 Glucose Level 97 Calcium Level 8.2 L Total Bilirubin 0.4 Direct Bilirubin 0.00 Indirect Bilirubin 0.4 Aspartate Amino Transf (AST/SGOT) 18 Alanine Aminotransferase (ALT/SGPT) 25 Alkaline Phosphatase 67 Total Protein 5.2 L Albumin 2.3 L Globulin 2.90 Albumin/Globulin Ratio 0.79 Medications Medications Current Medications Lorazepam (Ativan) 1 mg Q6H PRN IV ANXIETY; Start 11/18/16 at 00:00 Nicotine (Nicoderm 21 Mg/ 24hr) 1 patch DAILY TRANSDERM Last administered on 09:05; Admin Dose 1 PATCH; Start 11/19/16 at 09:00 Morphine Sulfate (morphine) 4 mg Q4H PRN IV PAIN Last administered on 09:37; Admin Dose 4 MG; Start 11/18/16 at 22:00 Diphenhydramine HCl (Benadryl) 25 mg Q6H PRN IV ITCHING; Start 11/19/16 at 20: 30 Ondansetron HCl (Zofran Inj) 4 mg Q6H PRN IV NAUSEA AND/OR VOMITING; Start 06/26 at 20:30 Phenol (Cepastat Lozenge) 1 lozenge PRN PRN MT SORE THROAT; Start 11/19/16 at 20:30 Hydralazine HCl (Apresoline) 10 mg Q4H PRN IV ELEVATED SYSTOLIC BP Last administered on 11/20/16 06:14; Admin Dose 10 MG; Start 11/20/16 at 06:00 Enoxaparin Sodium (Lovenox) 30 mg DAILY SC Last administered on 11/22/16 09:04 ; Admin Dose 30 MG; Start 11/21/16 at 09:00 Metoprolol Tartrate (Lopressor) 25 mg BID PO Last administered on 11/22/16 09: 02; Admin Dose 25 MG; Start 11/21/16 at 11:30 Amlodipine Besylate (Norvasc) 5 mg BID PO Last administered on 11/22/16t 09:02 ; Admin Dose 5 MG; Start 11/21/16 at 23:00 Acetaminophen (Tylenol Tab) 650 mg Q6H PRN PO PAIN AND OR ELEVATED TEMP; Start 11/22/16 at 09:30 Acetaminophen/ Hydrocodone Bitart ([place] (5/325)) 1 tab Q6H PRN PO PAIN LEVEL 7 -10; Start 11/22/16 at 09:30 Ibuprofen (Motrin) 600 mg Q6H PRN PO PAIN 1-3/10; Start 11/22/16 at 09:30 LION ADDISON MD November 22, 2016 13:20
[2016-11-22] MEDS: morphine 4 MG/ML VIAL IV PRN ×2 (16:13→21:55)
--- NOTE | 2016-11-22 17:05 | CONS ---
Date/Time of Note Date/Time of Note DATE: 11/22/16 TIME: 17:03 Assessment/Plan Assessment/Plan Chief Complaint/Hosp Course Assessment: Pre-operative cardiac evaluation - now post-operative Large bowel obstruction - status post total colectomy and ileostomy Intra-abdominal mass and possible malignancy - follow up pathology Ulcerative colitis Hypertension Dyslipidemia Tobacco use Recommendations: -echocardiogram shows normal LVEF 55-60%, no significant valvular disease -continue amlodipine, metoprolol, PRN hydralazine Problems: Consultation Date/Type/Reason Admit Date/Time November 17, 2016 at 17:51 Initial Consult Date 11/17/16 Type of Consultation: Cardiology 24 HR Interval Summary Free Text/Dictation Doing well post-operatively. Detailed Summary Additional Comments 14 point review of systems without changes. Exam/Review of Systems Vital Signs Vitals Vital Signs Date Time Temp Pulse Resp B/P Pulse Ox O2 Delivery O2 Flow Rate FiO2 11/22/16 09:00 18 11/22/16 08:01 98.0 71 119/79 97 11/21/16 20:00 Room Air 11/19/16 22:00 2.0 Intake and Output 11/21/16 11/21/16 11/22/16 15:00 23:00 07:00 Intake Total 700 ml 1400 ml 1725 ml Output Total 150 ml 1600 ml Balance 700 ml 1250 ml 125 ml Exam Constitutional: alert, well developed Psych: nl mood/affect, no complaints Head: atraumatic, normocephalic Eyes: nl conjunctiva, nl lids ENMT: nl external ears & nose, nl nasal mucosa & septum Neck: non-tender, supple, No jvd Respiratory: clear to auscultation, normal air movement Cardiovascular: regular rate and rhythm Gastrointestinal: soft, ileostomy in place Musculoskeletal: nl extremities to inspection Extremities: No clubbing, No cyanosis, No edema Neurological: nl mental status, nl speech Results Result Diagram: 11/22/16 0609 11/22/16 0609 Results 24 hrs Laboratory Tests Test 11/22/16 06:09 White Blood Count 8.6 # Red Blood Count 3.49 L Hemoglobin 10.1 L Hematocrit 31.5 L Mean Corpuscular Volume 90.3 Mean Corpuscular Hemoglobin 28.9 L Mean Corpuscular Hemoglobin Concent 32.1 Red Cell Distribution Width 13.3 Platelet Count 421 H Mean Platelet Volume 8.8 Neutrophils % 70.1 Lymphocytes % 19.9 Monocytes % 7.7 Eosinophils % 1.6 Basophils % 0.2 Nucleated Red Blood Cells % 0.0 Neutrophils # 6.0 Lymphocytes # 1.7 Monocytes # 0.7 Eosinophils # 0.1 Basophils # 0.0 Nucleated Red Blood Cells # 0.0 Sodium Level 134 L Potassium Level 3.6 Chloride Level 105 Carbon Dioxide Level 28 Anion Gap 5 L Blood Urea Nitrogen 4 L Creatinine 0.75 Glucose Level 97 Calcium Level 8.2 L Total Bilirubin 0.4 Direct Bilirubin 0.00 Indirect Bilirubin 0.4 Aspartate Amino Transf (AST/SGOT) 18 Alanine Aminotransferase (ALT/SGPT) 25 Alkaline Phosphatase 67 Total Protein 5.2 L Albumin 2.3 L Globulin 2.90 Albumin/Globulin Ratio 0.79 Medications Medications Current Medications Lorazepam (Ativan) 1 mg Q6H PRN IV ANXIETY; Start 11/18/16 at 00:00 Nicotine (Nicoderm 21 Mg/ 24hr) 1 patch DAILY TRANSDERM Last administered on 09:05; Admin Dose 1 PATCH; Start 11/19/16 at 09:00 Morphine Sulfate (morphine) 4 mg Q4H PRN IV PAIN Last administered on 16:13; Admin Dose 4 MG; Start 11/18/16 at 22:00 Diphenhydramine HCl (Benadryl) 25 mg Q6H PRN IV ITCHING; Start 11/19/16 at 20: 30 Ondansetron HCl (Zofran Inj) 4 mg Q6H PRN IV NAUSEA AND/OR VOMITING; Start 06/26 at 20:30 Phenol (Cepastat Lozenge) 1 lozenge PRN PRN MT SORE THROAT; Start 11/19/16 at 20:30 Hydralazine HCl (Apresoline) 10 mg Q4H PRN IV ELEVATED SYSTOLIC BP Last administered on 11/20/16 06:14; Admin Dose 10 MG; Start 11/20/16 at 06:00 Enoxaparin Sodium (Lovenox) 30 mg DAILY SC Last administered on 11/22/16 09:04 ; Admin Dose 30 MG; Start 11/21/16 at 09:00 Metoprolol Tartrate (Lopressor) 25 mg BID PO Last administered on 11/22/16 09: 02; Admin Dose 25 MG; Start 11/21/16 at 11:30 Amlodipine Besylate (Norvasc) 5 mg BID PO Last administered on 11/22/16 09:02 ; Admin Dose 5 MG; Start 11/21/16 at 23:00 Acetaminophen (Tylenol Tab) 650 mg Q6H PRN PO PAIN AND OR ELEVATED TEMP; Start 11/22/16 at 09:30 Acetaminophen/ Hydrocodone Bitart ([place] (5/325)) 1 tab Q6H PRN PO PAIN LEVEL 7 -10; Start 11/22/16 at 09:30 Ibuprofen (Motrin) 600 mg Q6H PRN PO PAIN 1-3/10; Start 11/22/16 at 09:30 MICHAEL STEVENS MD November 22, 2016 17:05
[2016-11-22 20:20] VITALS: BP 141/106; RESP 18
[2016-11-23 07:52] VITALS: BP 115/68; RESP 18
[2016-11-23] MEDS: METOPROLOL 25 MG TAB PO SCH (08:53)
[2016-11-23] MEDS: AMLODIPINE 5 MG TAB PO SCH (08:53)
[2016-11-23] MEDS: NICOTINE (21 MG/24 HR) PATCH TRANSDERM SCH (08:55)
[2016-11-23] MEDS: ENOXAPARIN 30 MG/0.3 ML SYG SC SCH (09:00)
--- NOTE | 2016-11-23 09:13 | PN ---
Date/Time of Note Date/Time of Note DATE: 11/23/16 TIME: 09:11 Assessment/Plan VTE Prophylaxis VTE Prophylaxis Intervention: ambulation, LMWH, SCD's Lines/Catheters IV Catheter Type (from Nrsg): [place] Urinary Cath still in place: No Assessment/Plan Chief Complaint/Hosp Course 61YO Woman h/o UC with colonic obstruction s/p stent in 06/25 now POD4 lap TAC. Doing very well. OOB, tolerating diet, ostomy output in good range, no NV/F/C /SOB/CP. Pain controlled. Good U O/P. VS OK. Pt OK to go home from surgical standpoint with home nursing. Instructed pt to call/go to ER if F/C/obstipation /bilious emesis/signs of peritonitis/wound infection. No heavy lifting or driving. F/U with me in 3 days in office. Pt agrees with plan. Problems: Subjective 24 Hr Interval Summary Free Text/Dictation 61YO Woman POD4 lap TAC and creation of ileostomy. Doing remarkably well. Tolerating diet, OOB, urinating, ostomy put out 600ml/24 hours. Pt denies CP/ SOB/F/C/NV. Appropriate pain. Constitutional: no complaints Respiratory: no complaints Cardiovascular: no complaints Gastrointestinal: pain (mild) Exam/Review of Systems Vital Signs Vitals Vital Signs Date Time Temp Pulse Resp B/P Pulse Ox O2 Delivery O2 Flow Rate FiO2 11/23/16 07:52 98.4 85 18 115/68 98 11/21/16 20:00 Room Air 11/19/16 22:00 2.0 Intake and Output 11/22/16 11/22/16 11/23/16 15:00 23:00 07:00 Intake Total 200 ml 360 ml Output Total 200 ml 1900 ml Balance 200 ml -200 ml -1540 ml Exam Constitutional: alert, oriented, well developed Respiratory: clear to auscultation Cardiovascular: regular rate and rhythm Gastrointestinal: soft (Mildly TTP, wound C/D/I, stoma pink with stool and gas in bag) Results Result Diagram: 11/22/16 0609 11/22/16 0609 Medications Medications Current Medications Lorazepam (Ativan) 1 mg Q6H PRN IV ANXIETY; Start 11/18/16 at 00:00 Nicotine (Nicoderm 21 Mg/ 24hr) 1 patch DAILY TRANSDERM Last administered on 08:55; Admin Dose 1 PATCH; Start 11/19/16 at 09:00 Morphine Sulfate (morphine) 4 mg Q4H PRN IV PAIN Last administered on 21:55; Admin Dose 4 MG; Start 11/18/16 at 22:00 Diphenhydramine HCl (Benadryl) 25 mg Q6H PRN IV ITCHING; Start 11/19/16 at 20: 30 Ondansetron HCl (Zofran Inj) 4 mg Q6H PRN IV NAUSEA AND/OR VOMITING; Start 06/26 at 20:30 Phenol (Cepastat Lozenge) 1 lozenge PRN PRN MT SORE THROAT; Start 11/19/16 at 20:30 Hydralazine HCl (Apresoline) 10 mg Q4H PRN IV ELEVATED SYSTOLIC BP Last administered on 11/20/16 06:14; Admin Dose 10 MG; Start 11/20/16 at 06:00 Enoxaparin Sodium (Lovenox) 30 mg DAILY SC Last administered on 11/23/16 09:00 ; Admin Dose 30 MG; Start 11/21/16 at 09:00 Metoprolol Tartrate (Lopressor) 25 mg BID PO Last administered on 11/23/16 08: 53; Admin Dose 25 MG; Start 11/21/16 at 11:30 Amlodipine Besylate (Norvasc) 5 mg BID PO Last administered on 11/23/16 08:53 ; Admin Dose 5 MG; Start 11/21/16 at 23:00 Acetaminophen (Tylenol Tab) 650 mg Q6H PRN PO PAIN AND OR ELEVATED TEMP; Start 11/22/16 at 09:30 Acetaminophen/ Hydrocodone Bitart ([place] (5/325)) 1 tab Q6H PRN PO PAIN LEVEL 7 -10; Start 11/22/16 at 09:30 Ibuprofen (Motrin) 600 mg Q6H PRN PO PAIN 1-3/10; Start 11/22/16 at 09:30 PRINCESS DIAZ M.D. November 23, 2016 09:13
--- NOTE | 2016-11-23 11:53 | PDOCDIS ---
Discharge Instructions CONDITION Patient Condition: Good HOME CARE INSTRUCTIONS: Special Diet: Soft Diet ACTIVITY: Activity Restrictions: Slowly Increase Activity Rest between Activity Avoid heavy lifting Avoid Heavy Housework FOLLOW UP/APPOINTMENTS Appointments follow up with her own through HMO insurance in 1-2 week after discharge. Follow up with General surgery Dr.Daniel Spann as outpatient in 2-3 weeks( pt will need a referral from her pMD to see General surgery as outpatient) LION ADDISON MD November 23, 2016 11:53
== END 2016-11-23 13:45 | disposition home health service (06) | DRG 330 ==
LOC: E/R 15:01 → MS2 17:51
PROVIDERS: ADMIT Internal Medicine; ATTEND Internal Medicine
PROC: 0D1B0Z4 Bypass Ileum to Cutaneous, Open Approach (ICD-10-PCS; 2016-11-19)
PROC: 0DTE0ZZ Resection of Large Intestine, Open Approach (ICD-10-PCS; principal; 2016-11-19 16:30)
DX: K51.812 Other ulcerative colitis with intestinal obstruction (principal); E44.0 Moderate protein-calorie malnutrition; Z68.1 Body mass index [BMI] 19.9 or less, adult; I10 Essential (primary) hypertension; D63.8 Anemia in other chronic diseases classified elsewhere; F17.200 Nicotine dependence, unspecified, uncomplicated; E78.5 Hyperlipidemia, unspecified
CPT/HCPCS: 36430; 71010; 74176; 80048; 80053; 80076; 81001; 81003; 83690; 83735; 84100; 84484; 85025; 85610; 85730; 86850; 86900; 86901; 86920; 87086; 88309; 93005; 93306; 97162; J0131; J0360; J0690; J1100; J1170; J1650; J1885; J2250; J2270; J2405; J2710; J2765; J2795; J3010; J3480; J7030; J7042; J7120; J7999; P9016

== ENCOUNTER 2019-03-13 07:25 | Emergency (ER) | payer MEDICARE, OTHER ==
[~2019-03-13] VITALS: Ht 160 cm; Wt 45.0 kg
[~2019-03-13 07:25] MED LIST changes: +BUPR150T6 PO; +MED4DP PO; +NAPR-985 PO; +SIMV40TA2 PO; -SMV40T PO; -SULF500T45 PO
[2019-03-13 07:28] VITALS: BP 108/66; PULSE 98; RESP 18; Ht 160 cm; Wt 45.0 kg
[2019-03-13] MEDS ORDERED: KETOROLAC 60 MG INJ IM STA (08:27)
== END 2019-03-13 08:41 | disposition home or self-care (01) ==
LOC: FTE 07:25
DX: R51 Headache (principal); F17.210 Nicotine dependence, cigarettes, uncomplicated; Z98.61 Coronary angioplasty status
CPT/HCPCS: 70450; 81001; 96372; 99285; J1885